=== PATIENT | male | born 1975 | race Caucasian/White ===

== ENCOUNTER 2016-11-12 12:02 | Inpatient (IN) | payer BC, OTHER ==
[~2016-11-12] VITALS: Ht 190.5 cm; Wt 116.4 kg
[2016-11-12] MEDS ORDERED: ACETAMINOPHEN 325 MG TAB As Ordered ONE (13:33)
[2016-11-12 13:59] LABS: BASO % 0.1 % (0.0-1.0); EOS # 0.1 K/mm3 (0.0-0.50); EOS % 1.4 % (0.0-3.0); LARGE UNSTAINED CELL # 0.1 K/mm3 (0.0-0.4); LARGE UNSTAINED CELL % 0.9 % (0.0-4.0); LYMPH # 1.8 K/mm3 (1.5-4.5); LYMPH % 26.9 % (24.0-44.0); MEAN CORPUSCULAR HEMOGLOBIN 29.4 pg (27.0-33.0); MEAN CORPUSCULAR HGB CONC 34.1 g/dl (32.0-36.5); MEAN CORPUSCULAR VOLUME 86.2 fl (80.0-96.0); MONO # 0.3 K/mm3 (0.0-0.8); MONO % 5.1 % (0.0-5.0); NEUTROPHILS # 4.4 K/mm3 (1.8-7.7); NEUTROPHILS % 65.5 % (36.0-66.0); PLATELET COUNT, AUTOMATED 202 k/mm3 (150-450); RED CELL DISTRIBUTION WIDTH 12.3 % (11.5-14.5); WHITE BLOOD COUNT 6.6 K/mm3 (4.0-10.0)
[2016-11-12 14:23] LABS: ANION GAP 9 MEQ/L (8-16); BLOOD UREA NITROGEN 19 MG/DL (7-18); CALCIUM LEVEL 8.6 MG/DL (8.5-10.1); CARBON DIOXIDE LEVEL 27 MEQ/L (21-32); CHLORIDE LEVEL 104 MEQ/L (98-107); CREATININE FOR GFR 0.96 MG/DL (0.70-1.30); GLOMERULAR FILTRATION RATE > 60.0 (>60); GLUCOSE, FASTING 179 MG/DL (70-105); POTASSIUM SERUM 4.1 MEQ/L (3.5-5.1); SODIUM LEVEL 140 MEQ/L (136-145)
--- NOTE | 2016-11-12 14:39 | REP ---
SCROTAL SONOGRAPHY: HISTORY: Swelling. Comparison study February 07, 2008. FINDINGS: High-resolution bilateral scrotal sonography shows no evidence of intratesticular mass or hematoma. Right testis measures 4.4 x 2.2 x 2.9 cm. Left testicular dimensions are 4.3 x 2.4 x 3.3 cm. No hydrocele or hernia is seen. Epididymides are unremarkable. Normal Doppler flow is seen both testes. Resistive indices are 0.60 and 0.55 on the right and left respectively. IMPRESSION: Negative scrotal sonography. No intratesticular hematoma or mass seen. Normal Doppler flow. Signed by Trenton Omer MD 11/12/2016 02:57 P
[2016-11-12] MEDS ORDERED: cefTRIAXone SOD 1 GM VIAL (J0696) As Ordered ONE (17:44)
[2016-11-12] MEDS ORDERED: CINN500C9 PO (17:47)
[2016-11-12] MEDS ORDERED: LISI2.5T3 PO (17:47)
[2016-11-12] MEDS ORDERED: LEXA1TAB2 PO (17:47)
[2016-11-12] MEDS ORDERED: OMEP40CA2 PO (17:47)
[2016-11-12] MEDS ORDERED: IBUP60TA PO (17:47)
[2016-11-12] MEDS ORDERED: GLYB25TA PO (17:47)
[2016-11-12] MEDS ORDERED: METF1000 PO (17:47)
[2016-11-12] MEDS ORDERED: ATOR1TAB19 PO (17:47)
--- NOTE | 2016-11-12 17:50 | REPUSA ---
HISTORY: Assess for perineal abscess TECHNIQUE: Ultrasound and doppler examination of the perineal region was performed with grayscale, co jeannie flow. FINDINGS: None In the perineal region there is a 3.0 x 3.3 x 2.3 cm complex fluid collection with peripheral flow, a nd surrounding edema. Drainable fluid was reported by dealer support technician. IMPRESSION: 3.3 cm perineal fluid collection would be consistent with a clinical suspicion of abscess.
[2016-11-12] MEDS ORDERED: ACETAMINOPHEN TAB 650MG DOSE (2X325MG) PO PRN (19:15)
[2016-11-12] MEDS ORDERED: DEXTROSE 50% 50 ML SYRINGE IV PRN (19:15)
[2016-11-12] MEDS ORDERED: GLUCOSE 4 GM CHEW TABLET PO PRN (19:15)
[2016-11-12] MEDS ORDERED: GLUCAGON FOR INJ 1 MG VIAL (J1610) SC PRN (19:15)
--- NOTE | 2016-11-12 20:27 | EDDOCDS ---
Physician Documentation [facility] Name: Scooter Meza Age: 41 yrs Sex: Male : 1975 Arrival Date: 11/12/2016 Time: 12:02 Bed 7 Private MD: Julio Cesar Matthews Disposition: 11/12 18:38 I have independently interviewed and examined the patient, and I agree with the sd1 investigation, diagnosis and treatment plan as documented by the Resident. Disposition: 11/12/16 18:37 Hospitalization ordered by Zulema Cooney for Inpatient Admission. Preliminary diagnosis is Cutaneous abscess, unspecified - perineal area with associated scrotal cellulitis. - Bed requested for M PED. - Status is Inpatient Admission. kmg1 - Condition is Stable. - Problem is new. - Symptoms are unchanged. Historical: - Allergies: No known drug Allergies; - Home Meds: 1. metformin 1,000 mg Oral tab 1 tab 2 times per day (Last dose: 11/12/2016 06:00) 2. omeprazole 20 mg Oral cpDR 1 cap once daily (Last dose: 11/12/2016 06:00) 3. atorvastatin 10 mg oral tab 1 tab once daily (Last dose: 11/12/2016 06:00) 4. Lexapro 20 mg Oral tab 1 tab once daily (Last dose: 11/12/2016 06:00) 5. lisinopril 10 mg Oral tab 1 tab once daily (Last dose: 11/12/2016 06:00) 6. ibuprofen 200 mg Oral tab 600 mg every 4-6 hours as needed (Last dose: 11/12/2016 06:00) 7. Cinnamon 500 mg oral cap 2 cap daily as needed (Last dose: 11/12/2016 06:00) - PMHx: Hypercholesterolemia; Hypertension; Diabetes - NIDDM: uncontrolled; GERD; - PSHx: Tonsillectomy; partial amputation right middle finger; Vasectomy; - Social history: Smoking status: Patient states was never smoker of tobacco. No barriers to communication noted, The patient speaks fluent Martiniquais. - Family history: Not pertinent. - : The pt / caregiver states he / she is not on anticoagulants. Home medication list is obtained from the patient. - Exposure Risk Screening:: None identified. Vital Signs: 12:04 BP 147 / 76; Pulse 62; Resp 18 S; Temp 96.6(O); Pulse Ox 98% on R/A; Weight 113.4 kg / gr2 250 lbs (R); Height 6 ft. 3 in. (190.50 cm) (R); Pain 8/10; 14:46 Pain 0/10; js13 19:06 BP 146 / 83 (auto/); mv5 19:08 Pulse 66 MON; Pulse Ox 99% ; mv5 19:36 BP 137 / 79 (auto/); mv5 19:36 Pulse 62 MON; Pulse Ox 97% ; mv5 20:09 BP 132 / 80; Pulse 72; Resp 18; Temp 99.8(O); Pulse Ox 97% on R/A; Pain 0/10; kmg1 12:04 Body Mass Index 31.25 (113.40 kg, 190.50 cm) gr2 MDM: 13:19 CBC with Diff Ordered. EDMS 13:24 Acetaminophen Tablet 650 mg PO once ordered. jo4 13:25 Scrotal, US Ordered. EDMS 13:26 BMP Ordered. EDMS 13:48 Financial registration complete. mm15 14:14 DUPLEX SCAN LIMITED (DOPPLER) Ordered. EDMS 14:19 [facility] Payment Agreement was scanned into [employer] and attached to record. mm15 14:26 CBC with Diff Reviewed. sd1 14:26 BMP Reviewed. sd1 15:14 Scrotal, US Reviewed. jo4 16:44 Scrotal, US Reviewed. jo4 16:53 Pelvis, limited US Ordered. EDMS 17:16 BED REQUEST+ADM ordered. EDMS 17:21 -Blood Culture (Adults Only), peripheral from different site, or from device/port/PICC sd1 etc. if present ordered. 17:22 CRP Ordered. EDMS 17:22 Sed Rate Ordered. EDMS 17:22 -Blood Culture Ordered. EDMS 17:25 Fingerstick Blood Sugar Ordered. EDMS 17:26 -Blood Culture (Adults Only), peripheral from different site, or from device/port/PICC ar3 etc. if present complete. 17:27 Fingerstick Blood Sugar Reviewed. jo4 17:27 BLOOD CULTURES Ordered. EDMS 17:31 cefTRIAXone 1 grams IVPB once over 30 mins; dilute in 50mL of NS or D5W ordered. jo4 17:31 IV Saline Lock ordered. jo4 18:12 Sed Rate Reviewed. sd1 19:15 Admission / Observation Status ordered. EDMS 19:15 NPO DIET ordered. EDMS 19:15 URINALYSIS Ordered. EDMS 19:15 HEMOGLOBIN A1C Ordered. EDMS 19:15 URINE CULTURE Ordered. EDMS 19:16 ABSCESS CULTURE AND GRAM STAIN Ordered. EDMS 19:23 Admission Orders was scanned into [employer] and attached to record. ml3 19:24 Written Provider Order was scanned into [employer] and attached to record. ml3 19:32 CBC WITH DIFFERENTIAL Ordered. EDMS 19:32 COMPLETE COMPHRENSIVE METABOLI Ordered. EDMS 19:33 MAGNESIUM LEVEL Ordered. EDMS Administered Medications: 13:36 Drug: Acetaminophen 650 mg [acetaminophen 325 mg tablet (2 tabs)] Route: PO; js13 14:46 Follow up: Pain 0/10 Adult; Response: Pain is decreased js13 17:56 Drug: cefTRIAXone 1 grams [ceftriaxone 1 gram solution for injection] Route: IVPB; js13 Infused Over: 30 mins; Site: right antecubital; 19:03 Follow up: IV Status: Completed infusion; IV Intake: 50ml js13 Signatures: Dispatcher [employer] EDMS Anne Joshua MD MD sd1 Iwona Maldonado, RN RN kmg1 Shirlene Aparicio, RN RN kpj Vero Strauss, Smasher Unit ml3 Mckenna Ponce, TENONER OPERATOR TENONER OPERATOR ar3 Sydnie Huerta,RN RN js13 Dalton Massey mm15 Carrie Novak DO DO jo4 The chart was reviewed and I authenticate all verbal orders and agree with the evaluation and treatment provided.Corrections: (The following items were deleted from the chart) 16:52 16:50 DUPLEX SCAN LIMITED (DOPPLER)+US ordered. EDMS EDMS 16:53 16:50 US PELVIC NON-OB COMPLETE+US ordered. EDMS EDMS Attachments: 14:19 [facility] [place] Payment Agreement mm15 19:23 Admission Orders ml3 19:24 Written Provider Order ml3 MTDD
--- NOTE | 2016-11-12 20:28 | EDDOCDS ---
Nurse's Notes [facility] Name: Scooter Meza Age: 41 yrs Sex: Male : 1975 Arrival Date: 11/12/2016 Time: 12:02 Bed 7 Private MD: Julio Cesar Matthews Diagnosis: Cutaneous abscess, unspecified-perineal area with associated scrotal cellulitis Presentation: 11/12 12:06 Presenting complaint: Patient states: swelling scrotum x 2 days blood sugar 247 mg/dl [facility] this morning. Adult Sepsis Screening: The patient does not have new or worsening altered mentation. Patient's respiratory rate is less than 22. Systolic blood pressure is greater than 100. Patient has a qSOFA score of 0- Negative Sepsis Screen. Suicide/Homicide risk assessment- the patient denies having any suicidal and/or homicidal ideations and does not present with any other emotional, behavioral or mental health complaints. Status: Patient is not a ag service manager or dependent. Transition of care: patient was not received from another setting of care. 12:06 Acuity: AYESHA Level 3 [facility] 12:06 Method Of Arrival: Walkin/Carried/Asstd [facility] Triage Assessment: 12:12 General: Appears in no apparent distress, well nourished, well groomed, Behavior is [facility] appropriate for age. Pain: Location: groin Pain currently is 0 out of 10 on a pain scale. Pt Declines HIV testing. Neurological: Level of Consciousness is awake, alert, Oriented to person, place, time. Respiratory: Airway is patent Respiratory effort is even, unlabored. GI: Denies nausea, vomiting, pain. : Reports pain swelling testicles. Derm: Skin is pink, warm & dry. Historical: - Allergies: No known drug Allergies; - Home Meds: 1. metformin 1,000 mg Oral tab 1 tab 2 times per day (Last dose: 11/12/2016 06:00) 2. omeprazole 20 mg Oral cpDR 1 cap once daily (Last dose: 11/12/2016 06:00) 3. atorvastatin 10 mg oral tab 1 tab once daily (Last dose: 11/12/2016 06:00) 4. Lexapro 20 mg Oral tab 1 tab once daily (Last dose: 11/12/2016 06:00) 5. lisinopril 10 mg Oral tab 1 tab once daily (Last dose: 11/12/2016 06:00) 6. ibuprofen 200 mg Oral tab 600 mg every 4-6 hours as needed (Last dose: 11/12/2016 06:00) 7. Cinnamon 500 mg oral cap 2 cap daily as needed (Last dose: 11/12/2016 06:00) - PMHx: Hypercholesterolemia; Hypertension; Diabetes - NIDDM: uncontrolled; GERD; - PSHx: Tonsillectomy; partial amputation right middle finger; Vasectomy; - Social history: Smoking status: Patient states was never smoker of tobacco. No barriers to communication noted, The patient speaks fluent Argentine. - Family history: Not pertinent. - : The pt / caregiver states he / she is not on anticoagulants. Home medication list is obtained from the patient. - Exposure Risk Screening:: None identified. Screenin:30 Screening information is obtained from the patient. Fall risk: No risks identified. js13 Assistance ADL's: requires no assistance with activities of daily living. Abuse/DV Screen: The patient / caregiver reports he/she is: not in a situation that causes fear, pain or injury. Nutritional screening: No deficits noted. Advance Directives: There is no active DNR order. home support is adequate. Assessment: 13:32 General: Appears in no apparent distress, Behavior is appropriate for age, cooperative. js13 Neurological: Level of Consciousness is awake, alert. Respiratory: Airway is patent Respiratory effort is even, unlabored, Respiratory pattern is regular, symmetrical. :. Derm: Skin is pink, warm & dry. 14:13 Adult Sepsis Screening: The patient does not have new or worsening altered mentation. js13 Patient's respiratory rate is less than 22. Systolic blood pressure is greater than 100. Patient has a qSOFA score of 0- Negative Sepsis Screen. 14:13 General: Appears in no apparent distress, Behavior is appropriate for age, cooperative. js13 Neurological: Level of Consciousness is awake, alert. Respiratory: Airway is patent Respiratory effort is even, unlabored, Respiratory pattern is regular, symmetrical. Derm: Skin is pink, warm & dry. 15:30 General: Appears in no apparent distress, Behavior is appropriate for age, cooperative. js13 Pain: Denies pain. Neurological: No deficits noted. Level of Consciousness is awake, alert. Respiratory: Airway is patent Respiratory effort is even, unlabored, Respiratory pattern is regular, symmetrical. Derm: Skin is pink, warm & dry. 16:15 Adult Sepsis Screening: The patient does not have new or worsening altered mentation. js13 Patient's respiratory rate is less than 22. Systolic blood pressure is greater than 100. Patient has a qSOFA score of 0- Negative Sepsis Screen. 16:52 General: Appears in no apparent distress, Behavior is appropriate for age, cooperative. js13 Neurological: Level of Consciousness is awake, alert. Respiratory: No deficits noted. Airway is patent Respiratory effort is even, unlabored, Respiratory pattern is regular, symmetrical. Derm: Skin is pink, warm & dry. 17:31 General: Appears in no apparent distress, Behavior is appropriate for age, cooperative. js13 Pain: Denies pain. Neurological: Level of Consciousness is awake, alert. Respiratory: Airway is patent Respiratory effort is even, unlabored, Respiratory pattern is regular. Derm: Skin is pink, warm & dry. 18:33 Adult Sepsis Screening: The patient does not have new or worsening altered mentation. js13 Patient's respiratory rate is less than 22. Systolic blood pressure is greater than 100. Patient has a qSOFA score of 0- Negative Sepsis Screen. General: Appears in no apparent distress, Behavior is appropriate for age, cooperative. Pain: Denies pain. Neurological: Level of Consciousness is awake, alert. Respiratory: Airway is patent Respiratory effort is even, unlabored, Respiratory pattern is regular, symmetrical. Derm: Skin is pink, warm & dry. 19:11 General: Appears in no apparent distress, Behavior is appropriate for age, cooperative. mv5 General: Pt resting comfortably, at bedside. Hospitalist in to assess pt and discuss plan of care.. Pain: Denies pain. Neurological: Level of Consciousness is awake, alert, Oriented to person, place, time. Respiratory: Airway is patent Respiratory effort is even, unlabored, Respiratory pattern is regular, symmetrical. Derm: Skin is pink, warm & dry. 20:09 General: Appears in no apparent distress, Behavior is cooperative, pleasant. Pain: mv5 Denies pain. Neurological: Level of Consciousness is awake, alert, Oriented to person, place, time. Respiratory: Airway is patent Respiratory effort is even, unlabored, Respiratory pattern is regular, symmetrical. Derm: Skin is pink, warm & dry. Vital Signs: 12:04 BP 147 / 76; Pulse 62; Resp 18 S; Temp 96.6(O); Pulse Ox 98% on R/A; Weight 113.4 kg gr2 (R); Height 6 ft. 3 in. (190.50 cm) (R); Pain 8/10; 14:46 Pain 0/10; js13 19:06 BP 146 / 83 (auto/); mv5 19:08 Pulse 66 MON; Pulse Ox 99% ; mv5 19:36 BP 137 / 79 (auto/); mv5 19:36 Pulse 62 MON; Pulse Ox 97% ; mv5 20:09 BP 132 / 80; Pulse 72; Resp 18; Temp 99.8(O); Pulse Ox 97% on R/A; Pain 0/10; kmg1 12:04 Body Mass Index 31.25 (113.40 kg, 190.50 cm) gr2 Vitals: 12:04 Log In Time: November 12, 2016 at 12:04. gr2 ED Course: 12:03 Patient visited by Elmira Orta. gr2 12:03 Julio Cesar Matthews DO is Private Physician. gr2 12:03 Patient moved to Waiting gr2 12:05 Patient visited by Elmira Orta. gr2 12:05 Patient moved to Pre RCE gr2 12:08 Triage Initiated kpj 12:16 Sydnie Huerta,ROGERS is Primary Nurse. srm 12:16 Patient moved to 7 srm 12:23 [facility] jo4 12:23 Anne Joshua MD is Attending Physician. jo4 12:30 The patient / caregiver is instructed regarding the plan of care and ED course. js13 13:00 Patient visited by Carrie Novak DO. jo4 13:00 Patient visited by Carrie Novak DO. jo4 13:33 Patient visited by Sydnie Huerta,ROGERS. js13 13:46 Patient moved to Ultrasound am17 14:10 Patient moved to 7 am17 14:13 Patient visited by Sydnie Huerta,ROGERS. js13 14:19 [facility] [place] Agreement was scanned into [employer] and attached to record. mm15 14:43 Scrotal, US Returned. EDMS 15:25 Scrotal, US Returned. EDMS 15:47 Patient visited by Soledad Posada. nb2 16:06 Patient visited by Sydnie Huerta,ROGERS. js13 16:53 Patient visited by Sydnie Huerta,ROGERS. js13 16:57 Patient moved to Ultrasound am17 17:06 Patient moved to 7 am17 17:32 Patient visited by Sydnie Huerta,ROGERS. js13 17:32 BLOOD CULTURES Sent. js13 17:32 CRP Sent. js13 17:32 Sed Rate Sent. js13 17:56 No procedures done that require assistance. Labs drawn. (by ED staff). Sent per order js13 to lab. Labs/Blood culture drawn. 17:57 Patient visited by Krishan Nunez,ROGERS. jf3 17:57 Inserted saline lock: 18 gauge in right antecubital area The patient tolerated the jf3 procedure well. 18:19 Pelvis, limited US Returned. EDMS 18:33 Patient visited by Sydnie Huerta,ROGERS. js13 18:37 Zulema Cooney is Hospitalizing Provider. sd1 19:11 Primary Nurse role handed off by Sydnie Huerta,ROGERS mv5 19:11 Tia Patel,ROGERS is Primary Nurse. mv5 19:11 Patient visited by Tia Patel,ROGERS. mv5 19:23 Admission Orders was scanned into [employer] and attached to record. ml3 19:24 Written Provider Order was scanned into [employer] and attached to record. ml3 19:45 Iwona Maldonado, RN is Primary Nurse. kmg1 19:59 ABSCESS CULTURE AND GRAM STAIN Sent. kmg1 Administered Medications: 13:36 Drug: Acetaminophen 650 mg [acetaminophen 325 mg tablet (2 tabs)] Route: PO; js13 14:46 Follow up: Pain 0/10 Adult; Response: Pain is decreased js13 17:56 Drug: cefTRIAXone 1 grams [ceftriaxone 1 gram solution for injection] Route: IVPB; js13 Infused Over: 30 mins; Site: right antecubital; 19:03 Follow up: IV Status: Completed infusion; IV Intake: 50ml js13 Intake: 19:03 IV: 50.00ml; Total: 50.00ml. js13 Order Results: Lab Order: CBC with Diff; SPEC'M 11/12/16 13:53 Test: WHITE BLOOD COUNT; Value: 6.6; Range: 4.0-10.0; Units: K/mm3; Status: F Test: RED BLOOD COUNT; Value: 4.98; Range: 4.30-6.10; Units: M/mm3; Status: F Test: HEMOGLOBIN; Value: 14.7; Range: 14.0-18.0; Units: g/dl; Status: F Test: HEMATOCRIT; Value: 42.9; Range: 42.0-52.0; Units: %; Status: F Test: MEAN CORPUSCULAR VOLUME; Value: 86.2; Range: 80.0-96.0; Units: fl; Status: F Test: MEAN CORPUSCULAR HEMOGLOBIN; Value: 29.4; Range: 27.0-33.0; Units: pg; Status: F Test: MEAN CORPUSCULAR HGB CONC; Value: 34.1; Range: 32.0-36.5; Units: g/dl; Status: F Test: RED CELL DISTRIBUTION WIDTH; Value: 12.3; Range: 11.5-14.5; Units: %; Status: F Test: PLATELET COUNT, AUTOMATED; Value: 202; Range: 150-450; Units: k/mm3; Status: F Test: NEUTROPHILS %; Value: 65.5; Range: 36.0-66.0; Units: %; Status: F Test: LYMPH %; Value: 26.9; Range: 24.0-44.0; Units: %; Status: F Test: MONO %; Value: 5.1; Range: 0.0-5.0; Abnormal: Above high normal; Units: %; Status: F Test: EOS %; Value: 1.4; Range: 0.0-3.0; Units: %; Status: F Test: BASO %; Value: 0.1; Range: 0.0-1.0; Units: %; Status: F Test: LARGE UNSTAINED CELL %; Value: 0.9; Range: 0.0-4.0; Units: %; Status: F Test: NEUTROPHILS #; Value: 4.4; Range: 1.8-7.7; Units: K/mm3; Status: F Test: LYMPH #; Value: 1.8; Range: 1.5-4.5; Units: K/mm3; Status: F Test: MONO #; Value: 0.3; Range: 0.0-0.8; Units: K/mm3; Status: F Test: EOS #; Value: 0.1; Range: 0.0-0.50; Units: K/mm3; Status: F Test: BASO #; Value: 0.0; Range: 0.0-0.2; Units: K/mm3; Status: F Test: LARGE UNSTAINED CELL #; Value: 0.1; Range: 0.0-0.4; Units: K/mm3; Status: F Lab Order: BMP; SPEC'M 11/12/16 13:53 Test: GLUCOSE, FASTING; Value: 179; Range: 70-105; Abnormal: Above high normal; Units: MG/DL; Status: F Test: BLOOD UREA NITROGEN; Value: 19; Range: 7-18; Abnormal: Above high normal; Units: MG/DL; Status: F Test: CREATININE FOR GFR; Value: 0.96; Range: 0.70-1.30; Units: MG/DL; Status: F Test: GLOMERULAR FILTRATION RATE; Value: > 60.0; Range: >60; Status: F Test: SODIUM LEVEL; Value: 140; Range: 136-145; Units: MEQ/L; Status: F Test: POTASSIUM SERUM; Value: 4.1; Range: 3.5-5.1; Units: MEQ/L; Status: F Test: CHLORIDE LEVEL; Value: 104; Range: 98-107; Units: MEQ/L; Status: F Test: CARBON DIOXIDE LEVEL; Value: 27; Range: 21-32; Units: MEQ/L; Status: F Test: ANION GAP; Value: 9; Range: 8-16; Units: MEQ/L; Status: F Test: CALCIUM LEVEL; Value: 8.6; Range: 8.5-10.1; Units: MG/DL; Status: F Test Note: ; Units are mL/min/1.73 m2 Chronic Kidney Disease Staging per NKF: Stage I & II GFR >=60 Normal to Mildly Decreased Stage III GFR 30-59 Moderately Decreased Stage IV GFR 15-29 Severely Decreased Stage V GFR <15 Very Little GFR Left ESRD GFR <15 on MOBILE UI DESIGNER Lab Order: CRP; SPEC'M 11/12/16 17:34 Test: C REACTIVE PROTEIN QUANTITATIV; Value: 5.45; Range: 0.00-0.30; Abnormal: Above high normal; Units: MG/DL; Status: F Lab Order: Sed Rate; [facility] 11/12/16 17:35 Test: ERYTHROCYTE SEDIMENTATION RATE; Value: 27; Range: 0-15; Abnormal: Above high normal; Units: mm/hr; Status: F Lab Order: Fingerstick Blood Sugar; [facility] 11/12/16 17:15 Test: BEDSIDE GLUCOSE; Value: 147; Range: 70-105; Abnormal: Above high normal; Units: MG/DL; Status: F Test Note: ; Dr Order not to Draw Lab Order: HEMOGLOBIN A1C; [facility] 11/12/16 17:25 Test: HEMOGLOBIN A1c; Value: 9.0; Range: 4.5-6.2; Abnormal: Above high normal; Units: %; Status: F Test: ESTIMATED AVERAGE GLUCOSE; Value: 212; Range: 60-110; Abnormal: Above high normal; Units: MG/DL; Status: F Radiology Order: Scrotal, US Test: Scrotal, US REASON FOR EXAMINATION: Deformity/Swelling; SCROTAL SONOGRAPHY:; ; HISTORY: Swelling.; ; Comparison study February 07, 2008.; ; FINDINGS: High-resolution bilateral scrotal sonography shows no evidence of; intratesticular mass or hematoma. Right testis measures 4.4 x 2.2 x 2.9 cm.; Left testicular dimensions are 4.3 x 2.4 x 3.3 cm. No hydrocele or hernia is; seen. Epididymides are unremarkable. Normal Doppler flow is seen both testes.; Resistive indices are 0.60 and 0.55 on the right and left respectively.; ; IMPRESSION:; ; Negative scrotal sonography. No intratesticular hematoma or mass seen. Normal; Doppler flow.; ; ; Signed by; Trenton Omer MD 11/12/2016 02:57 P; Radiology Order: Pelvis, limited US Test: Pelvis, limited US REASON FOR EXAMINATION: Scrotal swelling R/O PERINEAL ABSCESS; ; HISTORY: Assess for perineal abscess; TECHNIQUE: Ultrasound and doppler examination of the perineal region was performed with grayscale, co; jeannie flow.; FINDINGS: None; In the perineal region there is a 3.0 x 3.3 x 2.3 cm complex fluid collection with peripheral flow, a; nd surrounding edema. Drainable fluid was reported by astronomy professor.; IMPRESSION:; 3.3 cm perineal fluid collection would be consistent with a clinical suspicion of abscess.; ; Outcome: 18:37 Decision to Hospitalize by Provider. sd1 20:06 Admission hand-off: Report called to Blanca Cano. mv5 20:11 Discharge Assessment: Patient awake, alert and oriented x 3. No cognitive and/or mv5 functional deficits noted. Patient verbalized understanding of disposition instructions. patient administered narcotics - no. The following High Risk Discharge criteria are identified: Admitted to Pediatrics accompanied by tech, family with patient, via stretcher. Condition: stable. Ultrasound Study completed. Property :Personal belongings accompany Pt. 20:26 Patient left the ED. kmg1 Signatures: Dispatcher [employer] EDMS Anne Joshua MD MD sd1 Iwona Maldonado, RN RN kmg1 Shirlene Aparicio RN Ewa Acosta, RN RN [facility], Diagnostic Cardiac Sonographer Unit ml3 Sydnie Huerta,RN RN js13 Elmira Orta gr2 Dalton Massey mm15 Kateryna Clark am17 Krishan Nunez,RN RN jf3 Carrie Novak DO DO jo4 Soledad Posada2 Tia Patel,RN RN mv5 MTDD
[2016-11-12] MEDS: HumaLOG INSULIN (NovoLOG) PER UNIT SC SCH (21:00)
--- NOTE | 2016-11-12 21:00 | HPEPDOC ---
General Date of Admission Nov 12, 2016 at 19:05 Chief Complaint The patient is a 41-year-old male Presented to the ER with complaints of pain below his scrotum for the last 2-3 days. History of Present Illness Patient is a 41 year old male with a PMHx of HTN, DLP, GERD, Mood disorder and NIDDM2 who presented to the ER with pain and swelling just below his scrotum. Patient noted that 3 days ago he was playing with his daughter and got kicked in his testicles. At that point he had severe pain, but it subsided. He then noticed that over 2-3 days, he began having swelling, redness and tenderess to that area. Upon examination he had noted that there was a firm mass below his scrotum. He noted that it was tender. He reports that at home today, he had chills and measured his temperature which was 100.0F. He denies any drainage or skin breaks in the area. He denies any abdominal pain, dysuria, frequency, constipation, diarrhea, nausea or vomiting. He denies any chest pain, shortness of breath or cough. Patient noted that 2 weeks ago he had a cellulitis on the posterior aspect of his right thigh. He reported that he went sought medical attention and was given Ceftriaxone and a course of Keflex and the are resolved. He did not require any drainage. Home Medications Scheduled Atorvastatin Calcium (Atorvastatin Calcium) 10 Mg Tab 10 MG PO DAILY (Reported ) Cinnamon Bark (Cinnamon) 500 Mg Cap 1,000 MG PO DAILY (Reported) Escitalopram Oxalate (Lexapro) 20 Mg Tab 20 MG PO DAILY (Reported) Lisinopril (Lisinopril) 2.5 Mg Tab 2.5 MG PO DAILY (Reported) Metformin Hydrochloride (Metformin HCl) 1,000 Mg Tab 1,000 MG PO BID (Reported ) Omeprazole (Omeprazole) 40 Mg Cap 40 MG PO DAILY (Reported) Scheduled PRN Glyburide (Glyburide) 2.5 Mg Tab 2.5 MG PO DAILY PRN PRN HIGH BLOOD SUGAR ( Reported) Ibuprofen (Ibuprofen) 600 Mg Tab 600 MG PO Q4H PRN PRN PAIN (Reported) Allergies Coded Allergies: No Known Drug Allergy (Verified Allergy, Unknown, 01/14/13) Past Medical History Medical History HTN, DLP, GERD, Mood disorder and NIDDM2 Surgical History Tonsillectomy Vasectomy 10 years ago Traumatic amputation of the tip of the right middle finger 10 years ago Family History Family History - Mother and father with a history of heart problems Social History Social History - Denies the use of alcohol, tobacco or illicit drugs - Denies recent travel or sick contacts - Lives with and children - Occupation; Delivery of propane and other fuels Review of Symptoms Other systems Constitutional: Denies weight loss, change in appetite, or recent trauma Eyes: No visual changes or eye pain Ears, Nose, Throat: Denies nose bleeds, or difficulty swallowing Cardiovascular: Denies chest pain, sweating, or orthopnea Respiratory: Denies cough, wheezing, or shortness of breath GI: Pawan nausea, vomiting, abdominal pain, diarrhea or constipation : Denies pain with urination or frequency, Pain below scrotum Musculoskeletal: Denies joint pain or swelling Neuro / Psych: Denies muscle weakness or sensory loss Skin: No skin rashes noted All other review of systems negative; otherwise stated in history of present illness Vital Signs - Vitals: BP 147/76, HR 62, RR 18, Sat 98%RA, Temp 96.6F - General: Lying in bed, No acute distress, Speaking in full sentences, AAOx3 - HEENT: NC, AT, PERRLA, EOMI - CVS: RRR, +S1S2, - Murmurs / rubs / gallops - Lungs: Fair air entry bilaterally, Clear to auscultation, No wheezing / rales / rhonchi - Abdomen: Soft, Non-distended, Non-tender, + Bowel sounds x 4 - Genitourinary: Scrotum appears erythematous and warm, tenderness at posterior aspect of scrotum with firm fluctuant mass, no skin breaks or drainage noted - Extremities: + PPx4, No lower extremity edema, No calf tenderness - Neuro: No focal motor or sensory deficit - Skin: No visible rashes Laboratory Data Labs 24H Laboratory Tests 2 11/12/16 13:53: Anion Gap 9, White Blood Count 6.6, Red Blood Count 4.98, Hemoglobin 14.7, Hematocrit 42.9, Mean Corpuscular Volume 86.2, Mean Corpuscular Hemoglobin 29.4 , Mean Corpuscular Hemoglobin Concent 34.1, Red Cell Distribution Width 12.3, Platelet Count 202, Neutrophils (%) (Auto) 65.5, Lymphocytes (%) (Auto) 26.9, Monocytes (%) (Auto) 5.1H, Eosinophils (%) (Auto) 1.4, Basophils (%) (Auto) 0.1 , Neutrophils # (Auto) 4.4, Lymphocytes # (Auto) 1.8, Monocytes # (Auto) 0.3, Eosinophils # (Auto) 0.1, Basophils # (Auto) 0.0, Blood Urea Nitrogen 19H, Creatinine 0.96, Sodium Level 140, Potassium Level 4.1, Chloride Level 104, Carbon Dioxide Level 27, Calcium Level 8.6, Glomerular Filtration Rate > 60.0, Large Unclassified Cells # 0.1, Large Unclassified Cells % 0.9 11/12/16 17:15: Bedside Glucose (Misc Panel) 147H 11/12/16 17:25: Estimated Mean Plasma Glucose 212H, Hemoglobin A1c 9.0H 11/12/16 17:34: C-Reactive Protein, Quantitative 5.45H 11/12/16 17:35: Erythrocyte Sedimentation Rate 27H CBC/BMP Laboratory Tests 11/12/16 13:53 Calcium Level 8.6, Red Blood Count 4.98, Mean Corpuscular Volume 86.2, Mean Corpuscular Hemoglobin 29.4, Mean Corpuscular Hemoglobin Concent 34.1, Red Cell Distribution Width 12.3, Neutrophils (%) (Auto) 65.5, Lymphocytes (%) (Auto) 26.9, Monocytes (%) (Auto) 5.1 H, Eosinophils (%) (Auto) 1.4, Basophils (%) ( Auto) 0.1, Neutrophils # (Auto) 4.4, Lymphocytes # (Auto) 1.8, Monocytes # (Auto ) 0.3, Eosinophils # (Auto) 0.1, Basophils # (Auto) 0.0 Microbiology Microbiology 11/12/16 Blood Culture, Received Pending 11/12/16 Blood Culture, Received Pending Plan / VTE VTE Prophylaxis Ordered?: Yes Plan Plan Perianal abscess just below scrotum - Reported to have progressed over last 2-3 days, Fevers at home - Area of fluctuant collection, erythema, swelling and warmth, no drainage, no fevers in ER - No leukocytosis - US reveals area of 3.3cm fluid collection consistent with abscess - Will check blood culture and abscess drainage culture - Has been evaluated by urology in the ER; will go for incision and drainage tonight - Discussed with urology; will continue with Zosyn NIDDM2 - A1c of 9.0 - Reports that he follows with his primary care provider and will see him next week - Has been compliant with his medications and diet as an outpatient - will hold oral medications - Hyperglycemia possibly in the setting of infection - Will start insulin sliding scale HTN - will continue with home medications with holding parameters DLP - c/w atorvastatin Mood disorder - c/w Lexapro GERD - c/w omeprazole DVT prophylaxis - Will start SCDs DARIEL CASTANEDA MD Nov 12, 2016 21:00
[2016-11-12] MEDS: NS 1,000 ML IV SCH (21:34)
[2016-11-12] MEDS: PIPERACILLIN/TAZOBACTAM SOD 3.375 GM in D5W MINI-BAG PLUS 50 ML IV SCH (21:56)
[2016-11-12 22:00] VITALS: BP 170/79
[2016-11-12] MEDS ORDERED: DAKIN'S 0.25% HALF-STRENGTH SOLN 480 ML As Ordered ONE (22:43)
[2016-11-12] MEDS ORDERED: PROPOFOL 200 MG/20 ML VIAL As Ordered ONE (23:03)
[2016-11-12] MEDS ORDERED: LIDOCAINE 2% INJ 100 MG/5 ML SDV (FOR ANES.) As Ordered ONE (23:03)
[2016-11-12] MEDS ORDERED: fentaNYL 100 MCG/2 ML INJECTION (J3010) As Ordered ONE ×2 (23:03→23:17)
[2016-11-12] MEDS ORDERED: METOCLOPRAMIDE INJ 10MG/2ML VIAL (J2765) As Ordered ONE (23:03)
[2016-11-12] MEDS ORDERED: MIDAZOLAM INJ 2 MG/2 ML VIAL (J2250) As Ordered ONE (23:03)
[2016-11-12] MEDS ORDERED: ONDANSETRON 4MG/2ML VIAL (J2405) As Ordered ONE (23:03)
[2016-11-12] MEDS ORDERED: metroNIDAZOLE/NACL 500MG(5MG/ML)100 ML BAG (S0030) As Ordered ONE (23:08)
[2016-11-12] MEDS ORDERED: BACITRACIN OINT 30GM As Ordered ONE (23:26)
[2016-11-13] VITALS (12 sets, daily range): BP systolic 111–142; BP diastolic 55–74
[2016-11-13] MEDS ORDERED: PERCOCET 5MG/325MG TAB As Ordered ONE ×2 (00:12→00:34)
[2016-11-13] MEDS ORDERED: fentaNYL 100 MCG/2 ML INJECTION (J3010) IV PRN (00:15)
[2016-11-13] MEDS ORDERED: ONDANSETRON 4MG/2ML VIAL (J2405) IV PRN (00:15)
[2016-11-13] MEDS ORDERED: LR 1,000 ML IV SCH (00:15)
[2016-11-13] MEDS ORDERED: METOCLOPRAMIDE INJ 10MG/2ML VIAL (J2765) IV PRN (00:15)
[2016-11-13] MEDS: PERCOCET 5MG/325MG TAB PO PRN ×2 (00:15→00:35)
[2016-11-13] MEDS ORDERED: PERCOCET 5MG/325MG TAB PO PRN (01:15)
[2016-11-13] MEDS ORDERED: DAKIN'S 0.25% HALF-STRENGTH SOLN 480 ML TOP SCH (01:30)
[2016-11-13] MEDS: NS 1,000 ML IV SCH ×4 (02:30→22:13)
[2016-11-13] MEDS: PIPERACILLIN/TAZOBACTAM SOD 3.375 GM in D5W MINI-BAG PLUS 50 ML IV SCH ×3 (06:29→22:40)
[2016-11-13 06:50] LABS: BASO % 0.1 % (0.0-1.0); EOS # 0.1 K/mm3 (0.0-0.50); LARGE UNSTAINED CELL # 0.1 K/mm3 (0.0-0.4); LARGE UNSTAINED CELL % 1.3 % (0.0-4.0); LYMPH # 1.9 K/mm3 (1.5-4.5); LYMPH % 25.2 % (24.0-44.0); MEAN CORPUSCULAR HEMOGLOBIN 29.4 pg (27.0-33.0); MEAN CORPUSCULAR VOLUME 86.5 fl (80.0-96.0); MONO # 0.5 K/mm3 (0.0-0.8); MONO % 7.2 % (0.0-5.0); NEUTROPHILS # 4.7 K/mm3 (1.8-7.7); NEUTROPHILS % 65.2 % (36.0-66.0); PLATELET COUNT, AUTOMATED 193 k/mm3 (150-450); RED CELL DISTRIBUTION WIDTH 12.3 % (11.5-14.5); WHITE BLOOD COUNT 7.3 K/mm3 (4.0-10.0)
[2016-11-13 07:08] LABS: ALBUMIN 3.4 GM/DL (3.2-5.2); ALKALINE PHOSPHATASE 96 U/L (45-117); ALT/SGPT 33 U/L (12-78); ANION GAP 8 MEQ/L (8-16); AST/SGOT 12 U/L (15-37); BILIRUBIN,TOTAL 0.6 MG/DL (0.2-1.0); BLOOD UREA NITROGEN 14 MG/DL (7-18); CALCIUM LEVEL 8.4 MG/DL (8.5-10.1); CARBON DIOXIDE LEVEL 28 MEQ/L (21-32); CHLORIDE LEVEL 104 MEQ/L (98-107); CREATININE FOR GFR 1.02 MG/DL (0.70-1.30); GLOMERULAR FILTRATION RATE > 60.0 (>60); GLUCOSE, FASTING 163 MG/DL (70-105); MAGNESIUM LEVEL 2.1 MG/DL (1.8-2.4); POTASSIUM SERUM 4.4 MEQ/L (3.5-5.1); SODIUM LEVEL 140 MEQ/L (136-145); TOTAL PROTEIN 6.8 GM/DL (6.4-8.2)
[2016-11-13] MEDS: KETOROLAC 30 MG/ML VIAL (J1885) IV PRN ×2 (07:15→18:03)
--- NOTE | 2016-11-13 08:33 | CR ---
DATE OF CONSULTATION: 11/12/2016 ATTENDING PHYSICIAN: Dr. Cooney REASON FOR CONSULTATION: 41-year-old white male with a history of adult onset diabetes mellitus with a left perineal abscess. I was asked to evaluate the patient and treat definitively. CLINICAL HISTORY: 41-year-old white male who presented to the emergency room complaining of scrotal pain. The patient stated most of the pain was on the left side. The patient stated the pain started approximately 2-3 ago, but within the last 24 hours, noted erythematous changes of his scrotum and more importantly, a fluctuant area overlying the midline portion, mostly favoring the left side of the area between the scrotum and the anus. The patient denies any associated fevers or chills. Denies any dysuria. Denies problems defecating. In the emergency room, a scrotal ultrasound was obtained which showed no significant testicular pathology. Question of an epididymal cyst on the left side, but more importantly a fluctuant area between the scrotum and the anal opening to suggest a possible perineal abscess. Because of the severity of the findings on the ultrasound and the fact that the patient was diabetic, the patient was admitted for evaluation and more importantly, definitive treatment. The patient denies a prior history of perineal abscess. Denies any trauma to that area. MEDICATIONS: - Nexium - lisinopril - Lexapro - atorvastatin - ibuprofen - cinnamon - metformin ALLERGIES: No known drug allergies. PAST SURGICAL HISTORY: 1. Tonsillectomy. 2. Partial amputation of right middle finger. 3. Vasectomy. PAST MEDICAL HISTORY: 1. Hypercholesterolemia/hypertriglyceridemia. 2. Hypertension. 3. Adult onset diabetes mellitus. 4. Gastroesophageal reflux disease (GERD). 5. Depression. FAMILY HISTORY: Significant family history of heart disease and diabetes. Father has prostate cancer. Mother has arthritis. SOCIAL HISTORY: Patient is . Has five children. Patient denies smoking or alcohol usage. REVIEW OF SYSTEMS: Patient states fairly good health in spite of his multiple medical problems. Pulmonary vega, he denies any shortness of breath. Cardiovascular vega, he denies any chest pain. Gastrointestinal (GI): He does have GERD. Genitourinary (): Denies lower urinary tract symptoms (LUTS), dysuria or gross hematuria. Neurologically, he denies any seizure disorder. Psychiatric vega, the patient does have a functional disorder for which he is on Lexapro. Musculoskeletal vega, he denies any deficits. PHYSICAL EXAMINATION: Revealed as well nourished white male in mild distress secondary to his perineal discomfort. VITAL SIGNS: With a blood pressure of 147/76 with a pulse of 62, respiratory rate of 18 and temperature of 96.6. HEENT: Unremarkable. LUNGS: Clear to auscultation and percussion. HEART: Regular rate and rhythm. ABDOMEN: Obese, soft. Good bowel sounds. : Circumcised. Both testicles are down with erythematous scrotum. Palpable right epididymal cyst versus other, spermatocele. There is a fluctuant area between the scrotum and the anus. Aspiration of this area revealed purulent material. EXTREMITIES: Full range of motion. NEUROLOGICAL: He is alert and oriented times three. Labs, which includes a CBC with a white count of 6.6, hemoglobin of 14.7, hematocrit of 42.9. Differential on the white count is 66 polymorphonucleocytes , 27 lymphocytes, 5 monocytes, 1 eosinophil. BMP sodium 140, potassium 4.1, chloride 104, CO2 of 27, BUN of 19, creatinine 0.96, random glucose of 179. Urinalysis pending at the time of this dictation. IMPRESSION: 1. Abscess overlying the left perineal area. 2. Erythematous scrotum, probably a reflection of the perineal abscess. 3. Diabetes mellitus. Comorbidities include: 1. Hypertension. 2. Hypercholesterolemia. 3. Depression. 4. Left epididymal cyst. SUGGESTIONS: 1. Agree with admission. 2. Patient needs to be brought to the operating room for incision and drainage of the perineal abscess. 3. Empirical treatment with antibiotics (Zosyn). 4. Will add flagyl 5. Will continue to follow with you and make recommendations as clinical course dictates. FIDELINA
[2016-11-13] MEDS: HumaLOG INSULIN (NovoLOG) PER UNIT SC SCH ×4 (08:48→21:00)
[2016-11-13] MEDS: ATORVASTATIN 10 MG TAB PO SCH (08:49)
[2016-11-13] MEDS: OMEPRAZOLE 20 MG CAP PO SCH (08:49)
[2016-11-13] MEDS: ESCITALOPRAM OXALATE 10 MG TAB (LEXAPRO) PO SCH (08:49)
[2016-11-13] MEDS: LISINOPRIL *2.5 MG* TAB PO SCH (08:50)
--- NOTE | 2016-11-13 09:29 | RO ---
DATE OF PROCEDURE: 11/12/2016 PREOPERATIVE DIAGNOSIS: Left perineal abscess. POSTOPERATIVE DIAGNOSIS: Left perineal abscess. PROCEDURE: Incision and drainage of left perineal abscess. SURGEON: Theron Vincent MD MANAGER OF MARKETING: ANESTHESIA: General, Dr. Teran. COMPLICATIONS: None. CONDITION IN RECOVERY ROOM: Stable. SPECIMENS FORWARDED: Aerobic and anaerobic cultures taken from the abscess cavity. ESTIMATED BLOOD LOSS: Minimal. CATHETERS LEFT IN POSITION: None. CLINICAL HISTORY: 41-year-old white male who presented to the emergency room with a 2-3 day history of perineal/scrotal pain. The patient stated the pain became severe and it brought him to the emergency room today. In the emergency room, examination revealed an erythematous, swollen scrotum, but more importantly the patient had a fluctuant area overlying the perineum. Ultrasound demonstrated normal testes with findings consistent with left epididymal cyst, but more importantly, the patient had a fluctuant area situated in the perineum between the scrotal reflection and the anal opening. This was mostly favored towards the left side. Aspiration of this area in the emergency room revealed purulent material, and as such, the patient was admitted for further evaluation and more importantly, incision and drainage of the abscess. The patient was brought to the operating room for these purposes. OPERATIVE FINDINGS: The patient had a fluctuant area overlying the left perineal area. This was left of the median raphe. Incision in this area resulted in drainage of large amounts of purulent material. The cavity was estimated to be approximately 50-100 mL. The cavity was cleansed with one-quarter strength Dakin's solution following the breaking up of the loculations. Packing with iodoform laden in Dakin's and Betadine solution was used to pack the cavity. The cultures taken were both anaerobic and aerobic cultures and these were submitted for histological growth. DESCRIPTION OF PROCEDURE: The patient was brought to the operating room and positioned in supine position. Following the administration of general anesthesia, the patient was repositioned in dorsal lithotomy position. The groin area was then prepped and draped in the usual sterile manner to expose the perineal area. A #15 scalpel blade was used to make an incision overlying the fluctuant area. With scoring of the skin, there appeared to be a copious amount of purulent drainage. Once the cultures were obtained, hemostats were used to break up the loculations within the cavity. Having accomplished this, approximately 250 mL of one-quarter strength Dakin's solution was used to irrigate the cavity. Having accomplished this, and having felt that the cavity was properly irrigated, attention was directed towards the packing. Using solution comprising of one-quarter strength Dakin's and Betadine, the packing of the cavity was accomplished. Next, fluff dressing was placed over the packing followed by a mesh scrotal support. The patient was subsequently repositioned in supine position, reversed from his anesthesia, extubated and transferred to the recovery room in stable condition. The patient tolerated the procedure well.
--- NOTE | 2016-11-13 09:39 | IPNPDOC ---
Date Seen The patient was seen on 11/13/16. Progress Note Hospitalist Progress Note Subjective: Patient states he is currently feeling much better than when he arrived. He has noticed, however, he has some increased swelling of his scrotum. Objective: Physical Exam: Vitals: Vital Sign - Last 24 Hours 11/12/16 11/12/16 11/13/16 11/13/16 22:00 23:43 00:00 00:15 Temp 100.6 97.4 Pulse 71 91 83 Resp 18 20 16 16 B/P 170/79 171/80 135/64 Pulse Ox 97 93 95 O2 Delivery Room Air Nasal Cannula Room Air O2 Flow Rate 3 11/13/16 11/13/16 11/13/16 11/13/16 00:15 00:15 00:35 00:50 Temp 98.9 98.6 Pulse 73 81 Resp 16 16 16 18 B/P 137/59 134/74 Pulse Ox 94 96 97 O2 Delivery Room Air Room Air Room Air 11/13/16 11/13/16 11/13/16 11/13/16 01:20 01:50 02:50 03:50 Temp 97.4 97.6 96.3 96.7 Pulse 80 73 67 62 Resp 80 18 16 16 B/P 114/68 123/62 111/59 113/55 Pulse Ox 97 97 94 97 O2 Delivery Room Air Room Air Room Air Room Air 11/13/16 11/13/16 11/13/16 11/13/16 05:00 06:00 06:41 07:16 Temp 96.4 96.6 Pulse 61 81 Resp 18 18 18 18 B/P 137/71 118/70 Pulse Ox 97 98 O2 Delivery Room Air Room Air 11/13/16 08:50 B/P 142/68 General: Awake, alert, no acute distress HEENT: Normocephalic, atraumatic, extraocular movements intact CV: Regular rate and rhythm, no murmurs rubs or gallops Lungs: Clear to auscultation bilaterally, no wheeze Abd: Soft, nontender, nondistended : Scrotum and shaft of penis are significantly swollen and erythematous; the patient has packing in place where he underwent incision and drainage Extremities: No edema Neuro: Alert and oriented 3, normal speech Psych: normal mood and affect Labs and Imaging: Laboratory Tests 11/12/16 13:53 Calcium Level 8.6, Red Blood Count 4.98, Mean Corpuscular Volume 86.2, Mean Corpuscular Hemoglobin 29.4, Mean Corpuscular Hemoglobin Concent 34.1, Red Cell Distribution Width 12.3, Neutrophils (%) (Auto) 65.5, Lymphocytes (%) (Auto) 26.9, Monocytes (%) (Auto) 5.1 H, Eosinophils (%) (Auto) 1.4, Basophils (%) ( Auto) 0.1, Neutrophils # (Auto) 4.4, Lymphocytes # (Auto) 1.8, Monocytes # (Auto ) 0.3, Eosinophils # (Auto) 0.1, Basophils # (Auto) 0.0 11/13/16 06:33 Calcium Level 8.4 L, Red Blood Count 4.54, Mean Corpuscular Volume 86.5, Mean Corpuscular Hemoglobin 29.4, Mean Corpuscular Hemoglobin Concent 34.0, Red Cell Distribution Width 12.3, Neutrophils (%) (Auto) 65.2, Lymphocytes (%) (Auto) 25.2, Monocytes (%) (Auto) 7.2 H, Eosinophils (%) (Auto) 1.0, Basophils (%) ( Auto) 0.1, Neutrophils # (Auto) 4.7, Lymphocytes # (Auto) 1.9, Monocytes # (Auto ) 0.5, Eosinophils # (Auto) 0.1, Basophils # (Auto) 0.0, Aspartate Amino Transf (AST/SGOT) 12 L, Alanine Aminotransferase (ALT/SGPT) 33, Alkaline Phosphatase 96 , Total Bilirubin 0.6, Total Protein 6.8, Albumin 3.4 Assessment and Plan: 41-year-old male with hypertension, hyperlipidemia, GERD, mood disorder, diabetes mellitus type 2 who presented with pain and swelling below his scrotum and is admitted with cellulitis and abscess of the perineum. 1. Cellulitis and abscess of the perineum: The patient has a normal white count . However, he did have a fever overnight. He is now status post incision and drainage in the operating room with Dr. Vincent on 11/12/2016. Blood cultures, urine cultures, and abscess cultures are pending. At this time, we will continue Zosyn and Flagyl. I anticipate that when he has been afebrile for 24 hours, and culture results are back, we could switch him to an oral antibiotic. Dressing changes as per urology. 2. Hypertension: Continue home RODRÍGUEZ inhibitor. 3. Hyperlipidemia: Continue home statin. 4. GERD: Continue home PPI. 5. Mood disorder: Continue home Lexapro. 6. Diabetes mellitus type 2: The patient's A1c is 9.0. We are currently holding his home glyburide and metformin, and using sliding scale insulin while in- house. The patient does state that he has an appointment with his primary physicians to discuss changing his diabetic regimen. The importance of good glucose control in the setting of this infection was stressed to the patient, and he plans to keep follow-up with his primary physicians for further management of his diabetes. DVT prophylaxis: SCDs Dispo: pending continued urology recommendations, cultures, as well as being afebrile for 24 hours VS, I&O, 24H, Fishbone VS, I&O, 24H, Fishbone Vital Signs Date Time Temp Pulse Resp B/P Pulse Ox O2 Delivery O2 Flow Rate FiO2 11/13/16 08:50 142/68 11/13/16 07:16 18 11/13/16 06:00 96.6 81 98 Room Air 11/12/16 23:43 3 I&O- Last 24 Hours up to 6 AM 11/13/16 06:00 Intake Total 400 ml Balance 400 ml Laboratory Tests 2 11/12/16 13:53: Anion Gap 9, White Blood Count 6.6, Red Blood Count 4.98, Hemoglobin 14.7, Hematocrit 42.9, Mean Corpuscular Volume 86.2, Mean Corpuscular Hemoglobin 29.4 , Mean Corpuscular Hemoglobin Concent 34.1, Red Cell Distribution Width 12.3, Platelet Count 202, Neutrophils (%) (Auto) 65.5, Lymphocytes (%) (Auto) 26.9, Monocytes (%) (Auto) 5.1H, Eosinophils (%) (Auto) 1.4, Basophils (%) (Auto) 0.1 , Neutrophils # (Auto) 4.4, Lymphocytes # (Auto) 1.8, Monocytes # (Auto) 0.3, Eosinophils # (Auto) 0.1, Basophils # (Auto) 0.0, Blood Urea Nitrogen 19H, Creatinine 0.96, Sodium Level 140, Potassium Level 4.1, Chloride Level 104, Carbon Dioxide Level 27, Calcium Level 8.6, Glomerular Filtration Rate > 60.0, Large Unclassified Cells # 0.1, Large Unclassified Cells % 0.9 11/12/16 17:15: Bedside Glucose (Misc Panel) 147H 11/12/16 17:25: Estimated Mean Plasma Glucose 212H, Hemoglobin A1c 9.0H 11/12/16 17:34: C-Reactive Protein, Quantitative 5.45H 11/12/16 17:35: Erythrocyte Sedimentation Rate 27H 11/12/16 22:04: Urine Amorphous Sediment , Urine Appearance CLEAR, Urine Color YELLOW, Urine pH 6.0, Urine Specific [place] 1.025, Urine Protein NEGATIVE, Urine Glucose (UA) 2+ H, Urine Ketones 1+H, Urine Urobilinogen 0.2, Urine Bilirubin NEGATIVE, Urine Leukocyte Esterase NEGATIVE, Urine Bacteria (Auto) NEGATIVE, Urine Blood NEGATIVE, Urine Calcium Carbonate Cryst(Auto) , Urine Calcium Oxalate Cryst ( Auto) , Urine Calcium Phosphate Yeny (Auto) , Urine Cellular Casts , Urine Cystine Crystals , Urine Granular Casts (Auto) , Urine Hyaline Casts (Auto) 0, Urine Leucine Crystals , Urine Mucus (Auto) SMALL, Urine Nitrite NEGATIVE, Urine Oval Fat Bodies (Auto) , Urine RBC (Auto) 4H, Urine Renal Epithelial Cells , Urine Sperm (Auto) , Urine Squamous Epithelial Cells 0, Urine Transitional Epithelial Cells , Urine Trichomonas (Auto) , Urine Triple Phosphate Cryst (Auto) , Urine Tyrosine Crystals , Urine Uric Acid Crystals ( Auto) , Urine WBC (Auto) 0, Urine Waxy Casts (Auto) , Urine Yeast-Like Cells ( Auto) 11/13/16 00:29: Bedside Glucose (Misc Panel) 168H 11/13/16 06:33: Blood Urea Nitrogen 14, Creatinine 1.02, Sodium Level 140, Potassium Level 4.4, Chloride Level 104, Carbon Dioxide Level 28, Calcium Level 8.4L, Aspartate Amino Transf (AST/SGOT) 12L, Alanine Aminotransferase (ALT/SGPT) 33, Alkaline Phosphatase 96, Total Bilirubin 0.6, Total Protein 6.8, Albumin 3.4, Albumin/ Globulin Ratio 1.00, Anion Gap 8, White Blood Count 7.3, Red Blood Count 4.54, Hemoglobin 13.4L, Hematocrit 39.3L, Mean Corpuscular Volume 86.5, Mean Corpuscular Hemoglobin 29.4, Mean Corpuscular Hemoglobin Concent 34.0, Red Cell Distribution Width 12.3, Platelet Count 193, Neutrophils (%) (Auto) 65.2, Lymphocytes (%) (Auto) 25.2, Monocytes (%) (Auto) 7.2H, Eosinophils (%) (Auto) 1.0, Basophils (%) (Auto) 0.1, Neutrophils # (Auto) 4.7, Lymphocytes # (Auto) 1.9, Monocytes # (Auto) 0.5, Eosinophils # (Auto) 0.1, Basophils # (Auto) 0.0, Glomerular Filtration Rate > 60.0, Large Unclassified Cells # 0.1, Large Unclassified Cells % 1.3, Magnesium Level 2.1 Laboratory Tests 11/12/16 13:53 Calcium Level 8.6, Red Blood Count 4.98, Mean Corpuscular Volume 86.2, Mean Corpuscular Hemoglobin 29.4, Mean Corpuscular Hemoglobin Concent 34.1, Red Cell Distribution Width 12.3, Neutrophils (%) (Auto) 65.5, Lymphocytes (%) (Auto) 26.9, Monocytes (%) (Auto) 5.1 H, Eosinophils (%) (Auto) 1.4, Basophils (%) ( Auto) 0.1, Neutrophils # (Auto) 4.4, Lymphocytes # (Auto) 1.8, Monocytes # (Auto ) 0.3, Eosinophils # (Auto) 0.1, Basophils # (Auto) 0.0 11/13/16 06:33 Calcium Level 8.4 L, Red Blood Count 4.54, Mean Corpuscular Volume 86.5, Mean Corpuscular Hemoglobin 29.4, Mean Corpuscular Hemoglobin Concent 34.0, Red Cell Distribution Width 12.3, Neutrophils (%) (Auto) 65.2, Lymphocytes (%) (Auto) 25.2, Monocytes (%) (Auto) 7.2 H, Eosinophils (%) (Auto) 1.0, Basophils (%) ( Auto) 0.1, Neutrophils # (Auto) 4.7, Lymphocytes # (Auto) 1.9, Monocytes # (Auto ) 0.5, Eosinophils # (Auto) 0.1, Basophils # (Auto) 0.0, Aspartate Amino Transf (AST/SGOT) 12 L, Alanine Aminotransferase (ALT/SGPT) 33, Alkaline Phosphatase 96 , Total Bilirubin 0.6, Total Protein 6.8, Albumin 3.4 Microbiology 11/12/16 Blood Culture, Received Pending 11/12/16 Blood Culture, Received Pending 11/12/16 Gram Stain, Received Pending 11/12/16 Abscess Culture, Received Pending 11/12/16 Urine Culture, Received Pending 11/12/16 Anaerobic Culture, Received Pending 11/12/16 Abscess Culture, Worksheet Pending MECHELLE SLATER Nov 13, 2016 09:39
[2016-11-13] MEDS: metroNIDAZOLE 500 MG in APPROPRIATE DILUENT 1 EA IV SCH ×2 (11:18→23:58)
[2016-11-13] MEDS: ACETAMINOPHEN TAB 650MG DOSE (2X325MG) PO PRN ×2 (15:56→20:01)
[2016-11-13] MEDS: VANCOMYCIN HCL 1,000 MG, VIAL MATE ADAPTER 1 EACH in D5W 250 ML IV SCH (18:02)
[2016-11-14] VITALS: BP 125/66
[2016-11-14] MEDS: NS 1,000 ML IV SCH ×3 (00:30→10:58)
[2016-11-14] MEDS: VANCOMYCIN HCL 1,000 MG, VIAL MATE ADAPTER 1 EACH in D5W 250 ML IV SCH ×3 (01:43→18:06)
[2016-11-14 04:00] VITALS: BP 137/73
[2016-11-14] MEDS: PIPERACILLIN/TAZOBACTAM SOD 3.375 GM in D5W MINI-BAG PLUS 50 ML IV SCH ×3 (06:48→21:25)
[2016-11-14 06:52] LABS: BASO % 0.2 % (0.0-1.0); EOS # 0.1 K/mm3 (0.0-0.50); EOS % 1.8 % (0.0-3.0); LARGE UNSTAINED CELL # 0.1 K/mm3 (0.0-0.4); LARGE UNSTAINED CELL % 1.8 % (0.0-4.0); LYMPH # 1.5 K/mm3 (1.5-4.5); LYMPH % 23.8 % (24.0-44.0); MEAN CORPUSCULAR HEMOGLOBIN 28.9 pg (27.0-33.0); MEAN CORPUSCULAR HGB CONC 33.3 g/dl (32.0-36.5); MEAN CORPUSCULAR VOLUME 86.8 fl (80.0-96.0); MONO # 0.4 K/mm3 (0.0-0.8); MONO % 6.9 % (0.0-5.0); NEUTROPHILS # 3.9 K/mm3 (1.8-7.7); NEUTROPHILS % 65.5 % (36.0-66.0); PLATELET COUNT, AUTOMATED 207 k/mm3 (150-450); RED CELL DISTRIBUTION WIDTH 12.6 % (11.5-14.5)
[2016-11-14 07:19] LABS: ALBUMIN 2.9 GM/DL (3.2-5.2); ALBUMIN/GLOBULIN RATIO 0.83 (1.00-1.93); ALKALINE PHOSPHATASE 81 U/L (45-117); ALT/SGPT 34 U/L (12-78); ANION GAP 6 MEQ/L (8-16); AST/SGOT 16 U/L (15-37); BILIRUBIN,TOTAL 0.4 MG/DL (0.2-1.0); BLOOD UREA NITROGEN 13 MG/DL (7-18); CALCIUM LEVEL 7.9 MG/DL (8.5-10.1); CARBON DIOXIDE LEVEL 29 MEQ/L (21-32); CHLORIDE LEVEL 107 MEQ/L (98-107); CREATININE FOR GFR 0.97 MG/DL (0.70-1.30); GLOMERULAR FILTRATION RATE > 60.0 (>60); GLUCOSE, FASTING 179 MG/DL (70-105); MAGNESIUM LEVEL 2.1 MG/DL (1.8-2.4); POTASSIUM SERUM 4.4 MEQ/L (3.5-5.1); SODIUM LEVEL 142 MEQ/L (136-145); TOTAL PROTEIN 6.4 GM/DL (6.4-8.2)
[2016-11-14 08:00] VITALS: BP 109/63
[2016-11-14] MEDS: OMEPRAZOLE 20 MG CAP PO SCH (08:10)
[2016-11-14] MEDS: ESCITALOPRAM OXALATE 10 MG TAB (LEXAPRO) PO SCH (08:10)
[2016-11-14] MEDS: HumaLOG INSULIN (NovoLOG) PER UNIT SC SCH ×4 (08:10→21:26)
[2016-11-14] MEDS: ATORVASTATIN 10 MG TAB PO SCH (08:11)
--- NOTE | 2016-11-14 08:19 | PHACANCOPD ---
PHARMACY VANCOMYCIN DOSING Pt Demographics Demographics Patient Age:41 , Weight:113.400 , Gender: male Adjusted Body Weight Date: 11/14/16, Adjusted Body Weight: [96.06] Kg Events Past 24 Hours Events Past 24 Hours: YES: Fever, Pending Diagnostics Vancomycin Vancomycin indication: cellulitis Vancomycin Target Ranges: 15-20 mcg/ml Vancomycin Load Y/N: No Load Dose Date Time Vancomycin Load Dose: Date: Time: Vancomycin Dose Date: 11/14/16. Current Vancomycin Dose: [1g IV Q8H] Intermittent Dosing?: No Labs Labs Item Value Date Time White Blood Count 6.0 K/mm3 11/14/16 0629 White Blood Count 7.3 K/mm3 11/13/16 0633 White Blood Count 6.6 K/mm3 11/12/16 1353 Creatinine 0.97 MG/DL 11/14/16 0629 Creatinine 1.02 MG/DL 11/13/16 06 Creatinine 0.96 MG/DL 11/12/16 1353 Micro Microbiology 11/12/16 Blood Culture - Preliminary, Resulted No growth after 24 hours . All specim... 11/12/16 Blood Culture - Preliminary, Resulted No growth after 24 hours . All specim... 11/12/16 Gram Stain - Final, Resulted 11/12/16 Abscess Culture, Resulted Pending 11/12/16 Urine Culture, Received Pending 11/12/16 Anaerobic Culture, Received Pending 11/12/16 Abscess Culture, Worksheet Pending Creatinine Clearance Date:11/14/16. Estimated Creatinine Clearance: ~[>100 ml/min]. Pending Labs Vancomycin trough scheduled 11/15/16 @ 0900 Assessment and Plan Maintaining Current Dose?: Yes Reason for dose change: No Dose Change Pharmacist Note Pharmacist Note Date: 11/14/16. Pharmacist note: Vancomycin initiated at 1g IV Q8H for the treatment of cellulitis/perineal abscess to be given empirically with flagyl and zosyn, aiming for a goal trough of 15-20 mcg/ml. Patient is S/P incision and drainage on 11/12/16. WBC is WNL, but patient has been febrile in the past 24 hours. No PMH of MRSA or vanco use here at [facility]. All cultures are pending. A trough level has been scheduled 11/15/16 @ 0900. We will continue to monitor and make dose adjustments as needed. ALEJANDRO KOHLI PHARMACY Nov 14, 2016 08:19
[2016-11-14] MEDS: LISINOPRIL *2.5 MG* TAB PO SCH (09:00)
[2016-11-14] MEDS: metroNIDAZOLE 500 MG in APPROPRIATE DILUENT 1 EA IV SCH ×2 (10:59→23:00)
[2016-11-14 12:00] VITALS: BP 139/82
--- NOTE | 2016-11-14 14:38 | IPNPDOC ---
Date Seen The patient was seen on 11/14/16. Progress Note Hospitalist Progress Note Subjective: Patient feels much better and reports that swelling has decreased Objective: Physical Exam: Vitals: Vital Sign - Last 24 Hours 11/13/16 11/13/16 11/13/16 11/13/16 15:00 16:00 16:40 17:07 Temp 100.9 101.3 101.5 Pulse 75 70 Resp 18 16 B/P 117/69 131/66 Pulse Ox 95 97 O2 Delivery Room Air Room Air 11/13/16 11/13/16 11/13/16 11/14/16 18:31 20:00 20:00 00:00 Temp 99.2 97.9 97.6 Pulse 59 54 Resp 18 18 B/P 126/58 125/66 Pulse Ox 95 96 O2 Delivery Room Air Room Air Room Air 11/14/16 11/14/16 11/14/16 11/14/16 00:00 02:10 04:00 06:30 Temp 97.1 97.7 97.1 Pulse 59 Resp 18 B/P 137/73 Pulse Ox 97 O2 Delivery Room Air Room Air 11/14/16 11/14/16 11/14/16 08:00 09:00 12:00 Temp 98.0 98.1 Pulse 80 63 Resp 18 18 B/P 109/63 109/63 139/82 Pulse Ox 98 97 O2 Delivery Room Air Room Air General: Awake, alert, no acute distress HEENT: Normocephalic, atraumatic, extraocular movements intact CV: Regular rate and rhythm Lungs: Clear to auscultation bilaterally Abd: Soft, nontender, nondistended Extremities: No edema Neuro: Alert and oriented 3, normal speech Psych: normal mood and affect Labs and Imaging: Laboratory Tests 11/14/16 06:29 Calcium Level 7.9 L, Aspartate Amino Transf (AST/SGOT) 16, Alanine Aminotransferase (ALT/SGPT) 34, Alkaline Phosphatase 81, Total Bilirubin 0.4, Total Protein 6.4, Albumin 2.9 L, Red Blood Count 4.59, Mean Corpuscular Volume 86.8, Mean Corpuscular Hemoglobin 28.9, Mean Corpuscular Hemoglobin Concent 33.3 , Red Cell Distribution Width 12.6, Neutrophils (%) (Auto) 65.5, Lymphocytes (% ) (Auto) 23.8 L, Monocytes (%) (Auto) 6.9 H, Eosinophils (%) (Auto) 1.8, Basophils (%) (Auto) 0.2, Neutrophils # (Auto) 3.9, Lymphocytes # (Auto) 1.5, Monocytes # (Auto) 0.4, Eosinophils # (Auto) 0.1, Basophils # (Auto) 0.0 Assessment and Plan: 41-year-old male with hypertension, hyperlipidemia, GERD, mood disorder, diabetes mellitus type 2 who presented with pain and swelling below his scrotum and is admitted with cellulitis and abscess of the perineum. 1. Cellulitis and abscess of the perineum: The patient has a normal white count . However, he had multiple fevers yesterday, even while on zosyn and flagyl. Given that his initial wound gram stain had GPCs and he was having fevers on zosyn and flagyl, vancomycin was added yesterday. Now afebrile. He is now status post incision and drainage in the operating room with Dr. Vincent on 11/12. Blood cultures, urine cultures, and abscess cultures are pending. At this time, we will continue zosyn, flagyl, and vancomycin and follow up culture results. Dressing changes as per urology. 2. Hypertension: Continue home RODRÍGUEZ inhibitor. 3. Hyperlipidemia: Continue home statin. 4. GERD: Continue home PPI. 5. Mood disorder: Continue home Lexapro. 6. Diabetes mellitus type 2: The patient's A1c is 9.0. We are currently holding his home glyburide and metformin, and using sliding scale insulin while in- house. The patient does state that he has an appointment with his primary physicians to discuss changing his diabetic regimen. The importance of good glucose control in the setting of this infection was stressed to the patient, and he plans to keep follow-up with his primary physicians for further management of his diabetes. DVT prophylaxis: SCDs Dispo: pending cultures VS, I&O, 24H, Fishbone VS, I&O, 24H, Fishbone Vital Signs Date Time Temp Pulse Resp B/P Pulse Ox O2 Delivery O2 Flow Rate FiO2 11/14/16 12:00 98.1 63 18 139/82 97 Room Air 11/12/16 23:43 3 I&O- Last 24 Hours up to 6 AM 11/14/16 06:00 Intake Total 5710 ml Output Total 2100 ml Balance 3610 ml Laboratory Tests 2 11/13/16 16:37: Bedside Glucose (Misc Panel) 156H 11/13/16 21:00: Bedside Glucose (Misc Panel) 216H 11/14/16 06:29: Blood Urea Nitrogen 13, Creatinine 0.97, Sodium Level 142, Potassium Level 4.4, Chloride Level 107, Carbon Dioxide Level 29, Calcium Level 7.9L, Aspartate Amino Transf (AST/SGOT) 16, Alanine Aminotransferase (ALT/SGPT) 34, Alkaline Phosphatase 81, Total Bilirubin 0.4, Total Protein 6.4, Albumin 2.9L, Albumin/ Globulin Ratio 0.83L, Anion Gap 6L, White Blood Count 6.0, Red Blood Count 4.59 , Hemoglobin 13.3L, Hematocrit 39.8L, Mean Corpuscular Volume 86.8, Mean Corpuscular Hemoglobin 28.9, Mean Corpuscular Hemoglobin Concent 33.3, Red Cell Distribution Width 12.6, Platelet Count 207, Neutrophils (%) (Auto) 65.5, Lymphocytes (%) (Auto) 23.8L, Monocytes (%) (Auto) 6.9H, Eosinophils (%) (Auto) 1.8, Basophils (%) (Auto) 0.2, Neutrophils # (Auto) 3.9, Lymphocytes # (Auto) 1.5, Monocytes # (Auto) 0.4, Eosinophils # (Auto) 0.1, Basophils # (Auto) 0.0, Glomerular Filtration Rate > 60.0, Large Unclassified Cells # 0.1, Large Unclassified Cells % 1.8, Magnesium Level 2.1 11/14/16 13:01: Bedside Glucose (Misc Panel) 151H Laboratory Tests 11/14/16 06:29 Calcium Level 7.9 L, Aspartate Amino Transf (AST/SGOT) 16, Alanine Aminotransferase (ALT/SGPT) 34, Alkaline Phosphatase 81, Total Bilirubin 0.4, Total Protein 6.4, Albumin 2.9 L, Red Blood Count 4.59, Mean Corpuscular Volume 86.8, Mean Corpuscular Hemoglobin 28.9, Mean Corpuscular Hemoglobin Concent 33.3 , Red Cell Distribution Width 12.6, Neutrophils (%) (Auto) 65.5, Lymphocytes (% ) (Auto) 23.8 L, Monocytes (%) (Auto) 6.9 H, Eosinophils (%) (Auto) 1.8, Basophils (%) (Auto) 0.2, Neutrophils # (Auto) 3.9, Lymphocytes # (Auto) 1.5, Monocytes # (Auto) 0.4, Eosinophils # (Auto) 0.1, Basophils # (Auto) 0.0 Microbiology 11/12/16 Blood Culture - Preliminary, Resulted No growth after 24 hours . All specim... 11/12/16 Blood Culture - Preliminary, Resulted No growth after 24 hours . All specim... 11/12/16 Gram Stain - Final, Complete 11/12/16 Abscess Culture - Final, Complete 11/12/16 Urine Culture - Final, Complete 11/12/16 Anaerobic Culture, Received Pending 11/12/16 Abscess Culture, Worksheet Pending MECHELLE SLATER Nov 14, 2016 14:38
[2016-11-14 16:00] VITALS: BP 133/65
[2016-11-14 20:00] VITALS: BP 136/82
--- NOTE | 2016-11-14 21:27 | EDDOCDS ---
Physician Documentation [facility] Name: Scooter Meza Age: 41 yrs Sex: Male : 1975 Arrival Date: 11/12/2016 Time: 12:02 Bed 7 Private MD: Julio Cesar Matthews Disposition: 11/12 18:38 I have independently interviewed and examined the patient, and I agree with the sd1 investigation, diagnosis and treatment plan as documented by the Resident. Disposition: 11/12/16 18:37 Hospitalization ordered by Zulema Cooney for Inpatient Admission. Preliminary diagnosis is Cutaneous abscess, unspecified - perineal area with associated scrotal cellulitis. - Bed requested for M PED. - Status is Inpatient Admission. kmg1 - Condition is Stable. - Problem is new. - Symptoms are unchanged. Historical: - Allergies: No known drug Allergies; - Home Meds: 1. metformin 1,000 mg Oral tab 1 tab 2 times per day (Last dose: 11/12/2016 06:00) 2. omeprazole 20 mg Oral cpDR 1 cap once daily (Last dose: 11/12/2016 06:00) 3. atorvastatin 10 mg oral tab 1 tab once daily (Last dose: 11/12/2016 06:00) 4. Lexapro 20 mg Oral tab 1 tab once daily (Last dose: 11/12/2016 06:00) 5. lisinopril 10 mg Oral tab 1 tab once daily (Last dose: 11/12/2016 06:00) 6. ibuprofen 200 mg Oral tab 600 mg every 4-6 hours as needed (Last dose: 11/12/2016 06:00) 7. Cinnamon 500 mg oral cap 2 cap daily as needed (Last dose: 11/12/2016 06:00) - PMHx: Hypercholesterolemia; Hypertension; Diabetes - NIDDM: uncontrolled; GERD; - PSHx: Tonsillectomy; partial amputation right middle finger; Vasectomy; - Social history: Smoking status: Patient states was never smoker of tobacco. No barriers to communication noted, The patient speaks fluent [place]. - Family history: Not pertinent. - : The pt / caregiver states he / she is not on anticoagulants. Home medication list is obtained from the patient. - Exposure Risk Screening:: None identified. Vital Signs: 12:04 BP 147 / 76; Pulse 62; Resp 18 S; Temp 96.6(O); Pulse Ox 98% on R/A; Weight 113.4 kg / gr2 250 lbs (R); Height 6 ft. 3 in. (190.50 cm) (R); Pain 8/10; 14:46 Pain 0/10; js13 19:06 BP 146 / 83 (auto/); mv5 19:08 Pulse 66 MON; Pulse Ox 99% ; mv5 19:36 BP 137 / 79 (auto/); mv5 19:36 Pulse 62 MON; Pulse Ox 97% ; mv5 20:09 BP 132 / 80; Pulse 72; Resp 18; Temp 99.8(O); Pulse Ox 97% on R/A; Pain 0/10; kmg1 12:04 Body Mass Index 31.25 (113.40 kg, 190.50 cm) gr2 MDM: 13:19 CBC with Diff Ordered. EDMS 13:24 Acetaminophen Tablet 650 mg PO once ordered. jo4 13:25 Scrotal, US Ordered. EDMS 13:26 BMP Ordered. EDMS 13:48 Financial registration complete. mm15 14:14 DUPLEX SCAN LIMITED (DOPPLER) Ordered. EDMS 14:19 [facility] Payment Agreement was scanned into [employer] and attached to record. mm15 14:26 CBC with Diff Reviewed. sd1 14:26 BMP Reviewed. sd1 15:14 Scrotal, US Reviewed. jo4 16:44 Scrotal, US Reviewed. jo4 16:53 Pelvis, limited US Ordered. EDMS 17:16 BED REQUEST+ADM ordered. EDMS 17:21 -Blood Culture (Adults Only), peripheral from different site, or from device/port/PICC sd1 etc. if present ordered. 17:22 CRP Ordered. EDMS 17:22 Sed Rate Ordered. EDMS 17:22 -Blood Culture Ordered. EDMS 17:25 Fingerstick Blood Sugar Ordered. EDMS 17:26 -Blood Culture (Adults Only), peripheral from different site, or from device/port/PICC ar3 etc. if present complete. 17:27 Fingerstick Blood Sugar Reviewed. jo4 17:27 BLOOD CULTURES Ordered. EDMS 17:31 cefTRIAXone 1 grams IVPB once over 30 mins; dilute in 50mL of NS or D5W ordered. jo4 17:31 IV Saline Lock ordered. jo4 18:12 Sed Rate Reviewed. sd1 19:15 Admission / Observation Status ordered. EDMS 19:15 NPO DIET ordered. EDMS 19:15 URINALYSIS Ordered. EDMS 19:15 HEMOGLOBIN A1C Ordered. EDMS 19:15 URINE CULTURE Ordered. EDMS 19:16 ABSCESS CULTURE AND GRAM STAIN Ordered. EDMS 19:23 Admission Orders was scanned into [employer] and attached to record. ml3 19:24 Written Provider Order was scanned into [employer] and attached to record. ml3 19:32 CBC WITH DIFFERENTIAL Ordered. EDMS 19:32 COMPLETE COMPHRENSIVE METABOLI Ordered. EDMS 19:33 MAGNESIUM LEVEL Ordered. EDMS 21:45 T-Sheet-- Draft Copy was scanned into [employer] and attached to record. klr Administered Medications: 13:36 Drug: Acetaminophen 650 mg [acetaminophen 325 mg tablet (2 tabs)] Route: PO; js13 14:46 Follow up: Pain 0/10 Adult; Response: Pain is decreased js13 17:56 Drug: cefTRIAXone 1 grams [ceftriaxone 1 gram solution for injection] Route: IVPB; js13 Infused Over: 30 mins; Site: right antecubital; 19:03 Follow up: IV Status: Completed infusion; IV Intake: 50ml js13 Signatures: Dispatcher [employer] EDGA Anne Joshua MD MD sd1 Iwona Maldonado, RN RN kmg1 Shirlene Aparicio RN RN paddyj V[employer]uss, Logistics Solution Manager Unit ml3 Mckenna Ponce, CHINESE HERBALIST CHINESE HERBALIST ar3 Sydnie Huerta RN RN js13 Dalton Massey mm15 Carrie Novak DO DO jo4 Redder, Kathie klgildardo The chart was reviewed and I authenticate all verbal orders and agree with the evaluation and treatment provided.Corrections: (The following items were deleted from the chart) 16:52 16:50 DUPLEX SCAN LIMITED (DOPPLER)+US ordered. EDGA EDMS 16:53 16:50 US PELVIC NON-OB COMPLETE+US ordered. EDGA EDMS Attachments: 14:19 [facility] Payment Agreement mm15 19:23 Admission Orders ml3 19:24 Written Provider Order ml3 21:45 T-Sheet-- Draft Copy klr Chart Complete MTDD
--- NOTE | 2016-11-14 21:27 | EDDOCDS ---
Physician Documentation [facility] Name: Scooter Meza Age: 41 yrs Sex: Male : 1975 Arrival Date: 11/12/2016 Time: 12:02 Bed 7 Private MD: Julio Cesar Matthews Disposition: 11/12 18:38 I have independently interviewed and examined the patient, and I agree with the sd1 investigation, diagnosis and treatment plan as documented by the Resident. Disposition: 11/12/16 18:37 Hospitalization ordered by Zulema Cooney for Inpatient Admission. Preliminary diagnosis is Cutaneous abscess, unspecified - perineal area with associated scrotal cellulitis. - Bed requested for M PED. - Status is Inpatient Admission. kmg1 - Condition is Stable. - Problem is new. - Symptoms are unchanged. Historical: - Allergies: No known drug Allergies; - Home Meds: 1. metformin 1,000 mg Oral tab 1 tab 2 times per day (Last dose: 11/12/2016 06:00) 2. omeprazole 20 mg Oral cpDR 1 cap once daily (Last dose: 11/12/2016 06:00) 3. atorvastatin 10 mg oral tab 1 tab once daily (Last dose: 11/12/2016 06:00) 4. Lexapro 20 mg Oral tab 1 tab once daily (Last dose: 11/12/2016 06:00) 5. lisinopril 10 mg Oral tab 1 tab once daily (Last dose: 11/12/2016 06:00) 6. ibuprofen 200 mg Oral tab 600 mg every 4-6 hours as needed (Last dose: 11/12/2016 06:00) 7. Cinnamon 500 mg oral cap 2 cap daily as needed (Last dose: 11/12/2016 06:00) - PMHx: Hypercholesterolemia; Hypertension; Diabetes - NIDDM: uncontrolled; GERD; - PSHx: Tonsillectomy; partial amputation right middle finger; Vasectomy; - Social history: Smoking status: Patient states was never smoker of tobacco. No barriers to communication noted, The patient speaks fluent Swazi. - Family history: Not pertinent. - : The pt / caregiver states he / she is not on anticoagulants. Home medication list is obtained from the patient. - Exposure Risk Screening:: None identified. Vital Signs: 12:04 BP 147 / 76; Pulse 62; Resp 18 S; Temp 96.6(O); Pulse Ox 98% on R/A; Weight 113.4 kg / gr2 250 lbs (R); Height 6 ft. 3 in. (190.50 cm) (R); Pain 8/10; 14:46 Pain 0/10; js13 19:06 BP 146 / 83 (auto/); mv5 19:08 Pulse 66 MON; Pulse Ox 99% ; mv5 19:36 BP 137 / 79 (auto/); mv5 19:36 Pulse 62 MON; Pulse Ox 97% ; mv5 20:09 BP 132 / 80; Pulse 72; Resp 18; Temp 99.8(O); Pulse Ox 97% on R/A; Pain 0/10; kmg1 12:04 Body Mass Index 31.25 (113.40 kg, 190.50 cm) gr2 MDM: 13:19 CBC with Diff Ordered. EDMS 13:24 Acetaminophen Tablet 650 mg PO once ordered. jo4 13:25 Scrotal, US Ordered. EDMS 13:26 BMP Ordered. EDMS 13:48 Financial registration complete. mm15 14:14 DUPLEX SCAN LIMITED (DOPPLER) Ordered. EDMS 14:19 [facility] Payment Agreement was scanned into [employer] and attached to record. mm15 14:26 CBC with Diff Reviewed. sd1 14:26 BMP Reviewed. sd1 15:14 Scrotal, US Reviewed. jo4 16:44 Scrotal, US Reviewed. jo4 16:53 Pelvis, limited US Ordered. EDMS 17:16 BED REQUEST+ADM ordered. EDMS 17:21 -Blood Culture (Adults Only), peripheral from different site, or from device/port/PICC sd1 etc. if present ordered. 17:22 CRP Ordered. EDMS 17:22 Sed Rate Ordered. EDMS 17:22 -Blood Culture Ordered. EDMS 17:25 Fingerstick Blood Sugar Ordered. EDMS 17:26 -Blood Culture (Adults Only), peripheral from different site, or from device/port/PICC ar3 etc. if present complete. 17:27 Fingerstick Blood Sugar Reviewed. jo4 17:27 BLOOD CULTURES Ordered. EDMS 17:31 cefTRIAXone 1 grams IVPB once over 30 mins; dilute in 50mL of NS or D5W ordered. jo4 17:31 IV Saline Lock ordered. jo4 18:12 Sed Rate Reviewed. sd1 19:15 Admission / Observation Status ordered. EDMS 19:15 NPO DIET ordered. EDMS 19:15 URINALYSIS Ordered. EDMS 19:15 HEMOGLOBIN A1C Ordered. EDMS 19:15 URINE CULTURE Ordered. EDMS 19:16 ABSCESS CULTURE AND GRAM STAIN Ordered. EDMS 19:23 Admission Orders was scanned into [employer] and attached to record. ml3 19:24 Written Provider Order was scanned into [employer] and attached to record. ml3 19:32 CBC WITH DIFFERENTIAL Ordered. EDMS 19:32 COMPLETE COMPHRENSIVE METABOLI Ordered. EDMS 19:33 MAGNESIUM LEVEL Ordered. EDMS 21:45 T-Sheet-- Draft Copy was scanned into [employer] and attached to record. klr Administered Medications: 13:36 Drug: Acetaminophen 650 mg [acetaminophen 325 mg tablet (2 tabs)] Route: PO; js13 14:46 Follow up: Pain 0/10 Adult; Response: Pain is decreased js13 17:56 Drug: cefTRIAXone 1 grams [ceftriaxone 1 gram solution for injection] Route: IVPB; js13 Infused Over: 30 mins; Site: right antecubital; 19:03 Follow up: IV Status: Completed infusion; IV Intake: 50ml js13 Signatures: Dispatcher [employer] EDNV Anne Joshua MD MD sd1 Iwona Maldonado, RN RN kmg1 Shirlene Aparicio RN RN paddyj V[employer] Strauss, Clinical Laboratory Technologist Unit ml3 Mckenna Ponce, SALES TECHNICIAN HOME THEATER SALES TECHNICIAN HOME THEATER ar3 Sydnie Huerta RN RN js13 Dalton Masesy mm15 Carrie Novak DO DO jo4 Redder, Kathie klgildardo The chart was reviewed and I authenticate all verbal orders and agree with the evaluation and treatment provided.Corrections: (The following items were deleted from the chart) 16:52 16:50 DUPLEX SCAN LIMITED (DOPPLER)+US ordered. EDNV EDMS 16:53 16:50 US PELVIC NON-OB COMPLETE+US ordered. EDNV EDMS Attachments: 14:19 [facility] Payment Agreement mm15 19:23 Admission Orders ml3 19:24 Written Provider Order ml3 21:45 T-Sheet-- Draft Copy klr Chart Complete MTDD
--- NOTE | 2016-11-14 21:27 | EDDOCDS ---
Nurse's Notes [facility] Name: Scooter Meza Age: 41 yrs Sex: Male : 1975 Arrival Date: 11/12/2016 Time: 12:02 Bed 7 Private MD: Julio Cesar Matthews Diagnosis: Cutaneous abscess, unspecified-perineal area with associated scrotal cellulitis Presentation: 11/12 12:06 Presenting complaint: Patient states: swelling scrotum x 2 days blood sugar 247 mg/dl [facility] this morning. Adult Sepsis Screening: The patient does not have new or worsening altered mentation. Patient's respiratory rate is less than 22. Systolic blood pressure is greater than 100. Patient has a qSOFA score of 0- Negative Sepsis Screen. Suicide/Homicide risk assessment- the patient denies having any suicidal and/or homicidal ideations and does not present with any other emotional, behavioral or mental health complaints. Status: Patient is not a manager of environmental services or dependent. Transition of care: patient was not received from another setting of care. 12:06 Acuity: AYESHA Level 3 [facility] 12:06 Method Of Arrival: Walkin/Carried/Asstd [facility] Triage Assessment: 12:12 General: Appears in no apparent distress, well nourished, well groomed, Behavior is [facility] appropriate for age. Pain: Location: groin Pain currently is 0 out of 10 on a pain scale. Pt Declines HIV testing. Neurological: Level of Consciousness is awake, alert, Oriented to person, place, time. Respiratory: Airway is patent Respiratory effort is even, unlabored. GI: Denies nausea, vomiting, pain. : Reports pain swelling testicles. Derm: Skin is pink, warm & dry. Historical: - Allergies: No known drug Allergies; - Home Meds: 1. metformin 1,000 mg Oral tab 1 tab 2 times per day (Last dose: 11/12/2016 06:00) 2. omeprazole 20 mg Oral cpDR 1 cap once daily (Last dose: 11/12/2016 06:00) 3. atorvastatin 10 mg oral tab 1 tab once daily (Last dose: 11/12/2016 06:00) 4. Lexapro 20 mg Oral tab 1 tab once daily (Last dose: 11/12/2016 06:00) 5. lisinopril 10 mg Oral tab 1 tab once daily (Last dose: 11/12/2016 06:00) 6. ibuprofen 200 mg Oral tab 600 mg every 4-6 hours as needed (Last dose: 11/12/2016 06:00) 7. Cinnamon 500 mg oral cap 2 cap daily as needed (Last dose: 11/12/2016 06:00) - PMHx: Hypercholesterolemia; Hypertension; Diabetes - NIDDM: uncontrolled; GERD; - PSHx: Tonsillectomy; partial amputation right middle finger; Vasectomy; - Social history: Smoking status: Patient states was never smoker of tobacco. No barriers to communication noted, The patient speaks fluent Cymraes. - Family history: Not pertinent. - : The pt / caregiver states he / she is not on anticoagulants. Home medication list is obtained from the patient. - Exposure Risk Screening:: None identified. Screenin:30 Screening information is obtained from the patient. Fall risk: No risks identified. js13 Assistance ADL's: requires no assistance with activities of daily living. Abuse/DV Screen: The patient / caregiver reports he/she is: not in a situation that causes fear, pain or injury. Nutritional screening: No deficits noted. Advance Directives: There is no active DNR order. home support is adequate. Assessment: 13:32 General: Appears in no apparent distress, Behavior is appropriate for age, cooperative. js13 Neurological: Level of Consciousness is awake, alert. Respiratory: Airway is patent Respiratory effort is even, unlabored, Respiratory pattern is regular, symmetrical. :. Derm: Skin is pink, warm & dry. 14:13 Adult Sepsis Screening: The patient does not have new or worsening altered mentation. js13 Patient's respiratory rate is less than 22. Systolic blood pressure is greater than 100. Patient has a qSOFA score of 0- Negative Sepsis Screen. 14:13 General: Appears in no apparent distress, Behavior is appropriate for age, cooperative. js13 Neurological: Level of Consciousness is awake, alert. Respiratory: Airway is patent Respiratory effort is even, unlabored, Respiratory pattern is regular, symmetrical. Derm: Skin is pink, warm & dry. 15:30 General: Appears in no apparent distress, Behavior is appropriate for age, cooperative. js13 Pain: Denies pain. Neurological: No deficits noted. Level of Consciousness is awake, alert. Respiratory: Airway is patent Respiratory effort is even, unlabored, Respiratory pattern is regular, symmetrical. Derm: Skin is pink, warm & dry. 16:15 Adult Sepsis Screening: The patient does not have new or worsening altered mentation. js13 Patient's respiratory rate is less than 22. Systolic blood pressure is greater than 100. Patient has a qSOFA score of 0- Negative Sepsis Screen. 16:52 General: Appears in no apparent distress, Behavior is appropriate for age, cooperative. js13 Neurological: Level of Consciousness is awake, alert. Respiratory: No deficits noted. Airway is patent Respiratory effort is even, unlabored, Respiratory pattern is regular, symmetrical. Derm: Skin is pink, warm & dry. 17:31 General: Appears in no apparent distress, Behavior is appropriate for age, cooperative. js13 Pain: Denies pain. Neurological: Level of Consciousness is awake, alert. Respiratory: Airway is patent Respiratory effort is even, unlabored, Respiratory pattern is regular. Derm: Skin is pink, warm & dry. 18:33 Adult Sepsis Screening: The patient does not have new or worsening altered mentation. js13 Patient's respiratory rate is less than 22. Systolic blood pressure is greater than 100. Patient has a qSOFA score of 0- Negative Sepsis Screen. General: Appears in no apparent distress, Behavior is appropriate for age, cooperative. Pain: Denies pain. Neurological: Level of Consciousness is awake, alert. Respiratory: Airway is patent Respiratory effort is even, unlabored, Respiratory pattern is regular, symmetrical. Derm: Skin is pink, warm & dry. 19:11 General: Appears in no apparent distress, Behavior is appropriate for age, cooperative. mv5 General: Pt resting comfortably, at bedside. Hospitalist in to assess pt and discuss plan of care.. Pain: Denies pain. Neurological: Level of Consciousness is awake, alert, Oriented to person, place, time. Respiratory: Airway is patent Respiratory effort is even, unlabored, Respiratory pattern is regular, symmetrical. Derm: Skin is pink, warm & dry. 20:09 General: Appears in no apparent distress, Behavior is cooperative, pleasant. Pain: mv5 Denies pain. Neurological: Level of Consciousness is awake, alert, Oriented to person, place, time. Respiratory: Airway is patent Respiratory effort is even, unlabored, Respiratory pattern is regular, symmetrical. Derm: Skin is pink, warm & dry. Vital Signs: 12:04 BP 147 / 76; Pulse 62; Resp 18 S; Temp 96.6(O); Pulse Ox 98% on R/A; Weight 113.4 kg gr2 (R); Height 6 ft. 3 in. (190.50 cm) (R); Pain 8/10; 14:46 Pain 0/10; js13 19:06 BP 146 / 83 (auto/); mv5 19:08 Pulse 66 MON; Pulse Ox 99% ; mv5 19:36 BP 137 / 79 (auto/); mv5 19:36 Pulse 62 MON; Pulse Ox 97% ; mv5 20:09 BP 132 / 80; Pulse 72; Resp 18; Temp 99.8(O); Pulse Ox 97% on R/A; Pain 0/10; kmg1 12:04 Body Mass Index 31.25 (113.40 kg, 190.50 cm) gr2 Vitals: 12:04 Log In Time: November 12, 2016 at 12:04. gr2 ED Course: 12:03 Patient visited by Elmira Orta. gr2 12:03 Julio Cesar Matthews DO is Private Physician. gr2 12:03 Patient moved to Waiting gr2 12:05 Patient visited by Elmira Orta. gr2 12:05 Patient moved to Pre RCE gr2 12:08 Triage Initiated kpj 12:16 Sydnie Huerta,ROGERS is Primary Nurse. srm 12:16 Patient moved to 7 srm 12:23 [facility] jo4 12:23 Anne Joshua MD is Attending Physician. jo4 12:30 The patient / caregiver is instructed regarding the plan of care and ED course. js13 13:00 Patient visited by Carrie Novak DO. jo4 13:00 Patient visited by Carrie Novak DO. jo4 13:33 Patient visited by Sydnie Huerta,ROGERS. js13 13:46 Patient moved to Ultrasound am17 14:10 Patient moved to 7 am17 14:13 Patient visited by Sydnie Huerta,ROGERS. js13 14:19 [facility] Payment Agreement was scanned into [employer] and attached to record. mm15 14:43 Scrotal, US Returned. EDMS 15:25 Scrotal, US Returned. EDMS 15:47 Patient visited by Soledad Posada. nb2 16:06 Patient visited by Sydnie Huerta,ROGERS. js13 16:53 Patient visited by Sydnie Huerta,ROGERS. js13 16:57 Patient moved to Ultrasound am17 17:06 Patient moved to 7 am17 17:32 Patient visited by Sydnie Huerta,ROGERS. js13 17:32 BLOOD CULTURES Sent. js13 17:32 CRP Sent. js13 17:32 Sed Rate Sent. js13 17:56 No procedures done that require assistance. Labs drawn. (by ED staff). Sent per order js13 to lab. Labs/Blood culture drawn. 17:57 Patient visited by Krishan Nunez,ROGERS. jf3 17:57 Inserted saline lock: 18 gauge in right antecubital area The patient tolerated the jf3 procedure well. 18:19 Pelvis, limited US Returned. EDMS 18:33 Patient visited by Sydnie Huerta,ROGERS. js13 18:37 Zulema Cooney is Hospitalizing Provider. sd1 19:11 Primary Nurse role handed off by Sydnie Huerta,ROGERS mv5 19:11 Tia Patel,RN is Primary Nurse. mv5 19:11 Patient visited by Tia Patel,ROGERS. mv5 19:23 Admission Orders was scanned into [employer] and attached to record. ml3 19:24 Written Provider Order was scanned into [employer] and attached to record. ml3 19:45 Iwona Maldonado, RN is Primary Nurse. kmg1 19:59 ABSCESS CULTURE AND GRAM STAIN Sent. kmg1 21:45 T-Sheet-- Draft Copy was scanned into [employer] and attached to record. klr Administered Medications: 13:36 Drug: Acetaminophen 650 mg [acetaminophen 325 mg tablet (2 tabs)] Route: PO; js13 14:46 Follow up: Pain 0/10 Adult; Response: Pain is decreased js13 17:56 Drug: cefTRIAXone 1 grams [ceftriaxone 1 gram solution for injection] Route: IVPB; js13 Infused Over: 30 mins; Site: right antecubital; 19:03 Follow up: IV Status: Completed infusion; IV Intake: 50ml js13 Intake: 19:03 IV: 50.00ml; Total: 50.00ml. js13 Order Results: Lab Order: CBC with Diff; SPEC'M 02/04/17 13:53 Test: WHITE BLOOD COUNT; Value: 6.6; Range: 4.0-10.0; Units: K/mm3; Status: F Test: RED BLOOD COUNT; Value: 4.98; Range: 4.30-6.10; Units: M/mm3; Status: F Test: HEMOGLOBIN; Value: 14.7; Range: 14.0-18.0; Units: g/dl; Status: F Test: HEMATOCRIT; Value: 42.9; Range: 42.0-52.0; Units: %; Status: F Test: MEAN CORPUSCULAR VOLUME; Value: 86.2; Range: 80.0-96.0; Units: fl; Status: F Test: MEAN CORPUSCULAR HEMOGLOBIN; Value: 29.4; Range: 27.0-33.0; Units: pg; Status: F Test: MEAN CORPUSCULAR HGB CONC; Value: 34.1; Range: 32.0-36.5; Units: g/dl; Status: F Test: RED CELL DISTRIBUTION WIDTH; Value: 12.3; Range: 11.5-14.5; Units: %; Status: F Test: PLATELET COUNT, AUTOMATED; Value: 202; Range: 150-450; Units: k/mm3; Status: F Test: NEUTROPHILS %; Value: 65.5; Range: 36.0-66.0; Units: %; Status: F Test: LYMPH %; Value: 26.9; Range: 24.0-44.0; Units: %; Status: F Test: MONO %; Value: 5.1; Range: 0.0-5.0; Abnormal: Above high normal; Units: %; Status: F Test: EOS %; Value: 1.4; Range: 0.0-3.0; Units: %; Status: F Test: BASO %; Value: 0.1; Range: 0.0-1.0; Units: %; Status: F Test: LARGE UNSTAINED CELL %; Value: 0.9; Range: 0.0-4.0; Units: %; Status: F Test: NEUTROPHILS #; Value: 4.4; Range: 1.8-7.7; Units: K/mm3; Status: F Test: LYMPH #; Value: 1.8; Range: 1.5-4.5; Units: K/mm3; Status: F Test: MONO #; Value: 0.3; Range: 0.0-0.8; Units: K/mm3; Status: F Test: EOS #; Value: 0.1; Range: 0.0-0.50; Units: K/mm3; Status: F Test: BASO #; Value: 0.0; Range: 0.0-0.2; Units: K/mm3; Status: F Test: LARGE UNSTAINED CELL #; Value: 0.1; Range: 0.0-0.4; Units: K/mm3; Status: F Lab Order: [facility]; SPEC'M 11/12/16 13:53 Test: GLUCOSE, FASTING; Value: 179; Range: 70-105; Abnormal: Above high normal; Units: MG/DL; Status: F Test: BLOOD UREA NITROGEN; Value: 19; Range: 7-18; Abnormal: Above high normal; Units: MG/DL; Status: F Test: CREATININE FOR GFR; Value: 0.96; Range: 0.70-1.30; Units: MG/DL; Status: F Test: GLOMERULAR FILTRATION RATE; Value: > 60.0; Range: >60; Status: F Test: SODIUM LEVEL; Value: 140; Range: 136-145; Units: MEQ/L; Status: F Test: POTASSIUM SERUM; Value: 4.1; Range: 3.5-5.1; Units: MEQ/L; Status: F Test: CHLORIDE LEVEL; Value: 104; Range: 98-107; Units: MEQ/L; Status: F Test: CARBON DIOXIDE LEVEL; Value: 27; Range: 21-32; Units: MEQ/L; Status: F Test: ANION GAP; Value: 9; Range: 8-16; Units: MEQ/L; Status: F Test: CALCIUM LEVEL; Value: 8.6; Range: 8.5-10.1; Units: MG/DL; Status: F Test Note: ; Units are mL/min/1.73 m2 Chronic Kidney Disease Staging per NKF: Stage I & II GFR >=60 Normal to Mildly Decreased Stage III GFR 30-59 Moderately Decreased Stage IV GFR 15-29 Severely Decreased Stage V GFR <15 Very Little GFR Left ESRD GFR <15 on CUSTOMS GUARD Lab Order: CRP; [facility]11/12/16 17:34 Test: C REACTIVE PROTEIN QUANTITATIV; Value: 5.45; Range: 0.00-0.30; Abnormal: Above high normal; Units: MG/DL; Status: F Lab Order: Sed Rate; [facility] 11/12/16 17:35 Test: ERYTHROCYTE SEDIMENTATION RATE; Value: 27; Range: 0-15; Abnormal: Above high normal; Units: mm/hr; Status: F Lab Order: Fingerstick Blood Sugar; [facility]11/12/16 17:15 Test: BEDSIDE GLUCOSE; Value: 147; Range: 70-105; Abnormal: Above high normal; Units: MG/DL; Status: F Test Note: ; Dr Order not to Draw Lab Order: HEMOGLOBIN A1C; [facility]11/12/16 17:25 Test: HEMOGLOBIN A1c; Value: 9.0; Range: 4.5-6.2; Abnormal: Above high normal; Units: %; Status: F Test: ESTIMATED AVERAGE GLUCOSE; Value: 212; Range: 60-110; Abnormal: Above high normal; Units: MG/DL; Status: F Radiology Order: Scrotal, US Test: Scrotal, US REASON FOR EXAMINATION: Deformity/Swelling; SCROTAL SONOGRAPHY:; ; HISTORY: Swelling.; ; Comparison study February 07, 2008.; ; FINDINGS: High-resolution bilateral scrotal sonography shows no evidence of; intratesticular mass or hematoma. Right testis measures 4.4 x 2.2 x 2.9 cm.; Left testicular dimensions are 4.3 x 2.4 x 3.3 cm. No hydrocele or hernia is; seen. Epididymides are unremarkable. Normal Doppler flow is seen both testes.; Resistive indices are 0.60 and 0.55 on the right and left respectively.; ; IMPRESSION:; ; Negative scrotal sonography. No intratesticular hematoma or mass seen. Normal; Doppler flow.; ; ; Signed by; Trenton Omer MD 11/12/2016 02:57 P; Radiology Order: Pelvis, limited US Test: Pelvis, limited US REASON FOR EXAMINATION: Scrotal swelling R/O PERINEAL ABSCESS; ; HISTORY: Assess for perineal abscess; TECHNIQUE: Ultrasound and doppler examination of the perineal region was performed with grayscale, co; jeannie flow.; FINDINGS: None; In the perineal region there is a 3.0 x 3.3 x 2.3 cm complex fluid collection with peripheral flow, a; nd surrounding edema. Drainable fluid was reported by movie actor.; IMPRESSION:; 3.3 cm perineal fluid collection would be consistent with a clinical suspicion of abscess.; ; Outcome: 18:37 Decision to Hospitalize by Provider. sd1 20:06 Admission hand-off: Report called to [facility]. mv5 20:11 Discharge Assessment: Patient awake, alert and oriented x 3. No cognitive and/or mv5 functional deficits noted. Patient verbalized understanding of disposition instructions. patient administered narcotics - no. The following High Risk Discharge criteria are identified: Admitted to Pediatrics accompanied by tech, family with patient, via stretcher. Condition: stable. Ultrasound Study completed. Property :Personal belongings accompany Pt. 20:26 Patient left the ED. kmg1 Signatures: Dispatcher [employer] EDMS Anne Joshua MD MD sd1 Iwona Maldonado, RN RN kmg1 Shirlene Aparicio RN RN Ewa Youngblood, RN RN [facility] Carlos A, Lennox[place], [employer] ml3 Sydnie Huerta,RN RN js13 Elmira Orta gr2 Dalton Massey mm15 Kateryna Clark am17 Krishan Nunez,RN RN jf3 Carrie Novak DO DO jo4 Redder, Kathie klr Baart, Nicole nb2 Vannedery, Megan,RN RN mv5 Chart Complete [facility]
[2016-11-15] VITALS: BP 142/74
[2016-11-15] MEDS: VANCOMYCIN HCL 1,000 MG, VIAL MATE ADAPTER 1 EACH in D5W 250 ML IV SCH ×2 (01:16→10:24)
[2016-11-15 04:00] VITALS: BP 149/59
[2016-11-15] MEDS: PIPERACILLIN/TAZOBACTAM SOD 3.375 GM in D5W MINI-BAG PLUS 50 ML IV SCH ×3 (05:30→21:28)
[2016-11-15 08:00] VITALS: BP 140/81
[2016-11-15] MEDS: HumaLOG INSULIN (NovoLOG) PER UNIT SC SCH ×4 (08:35→21:00)
[2016-11-15 09:44] LABS: BASO % 0.4 % (0.0-1.0); EOS # 0.1 K/mm3 (0.0-0.50); EOS % 2.1 % (0.0-3.0); LARGE UNSTAINED CELL # 0.1 K/mm3 (0.0-0.4); LARGE UNSTAINED CELL % 2.3 % (0.0-4.0); LYMPH # 1.7 K/mm3 (1.5-4.5); LYMPH % 33.9 % (24.0-44.0); MEAN CORPUSCULAR HEMOGLOBIN 29.8 pg (27.0-33.0); MEAN CORPUSCULAR HGB CONC 34.9 g/dl (32.0-36.5); MEAN CORPUSCULAR VOLUME 85.4 fl (80.0-96.0); MONO # 0.3 K/mm3 (0.0-0.8); NEUTROPHILS # 2.8 K/mm3 (1.8-7.7); NEUTROPHILS % 55.3 % (36.0-66.0); PLATELET COUNT, AUTOMATED 238 k/mm3 (150-450); RED CELL DISTRIBUTION WIDTH 11.9 % (11.5-14.5); WHITE BLOOD COUNT 5.1 K/mm3 (4.0-10.0)
[2016-11-15 09:51] LABS: ALBUMIN 3.3 GM/DL (3.2-5.2); ALBUMIN/GLOBULIN RATIO 0.92 (1.00-1.93); ALKALINE PHOSPHATASE 89 U/L (45-117); ALT/SGPT 41 U/L (12-78); ANION GAP 8 MEQ/L (8-16); AST/SGOT 25 U/L (15-37); BILIRUBIN,TOTAL 0.3 MG/DL (0.2-1.0); BLOOD UREA NITROGEN 12 MG/DL (7-18); CALCIUM LEVEL 8.3 MG/DL (8.5-10.1); CARBON DIOXIDE LEVEL 27 MEQ/L (21-32); CHLORIDE LEVEL 106 MEQ/L (98-107); GLOMERULAR FILTRATION RATE > 60.0 (>60); GLUCOSE, FASTING 176 MG/DL (70-105); MAGNESIUM LEVEL 2.2 MG/DL (1.8-2.4); POTASSIUM SERUM 4.2 MEQ/L (3.5-5.1); SODIUM LEVEL 141 MEQ/L (136-145); TOTAL PROTEIN 6.9 GM/DL (6.4-8.2)
[2016-11-15] MEDS: ATORVASTATIN 10 MG TAB PO SCH (10:23)
[2016-11-15] MEDS: OMEPRAZOLE 20 MG CAP PO SCH (10:23)
[2016-11-15] MEDS: NS 1,000 ML IV SCH (10:23)
[2016-11-15] MEDS: ESCITALOPRAM OXALATE 10 MG TAB (LEXAPRO) PO SCH (10:23)
--- NOTE | 2016-11-15 10:23 | PHACANCOPD ---
PHARMACY VANCOMYCIN DOSING Pt Demographics Demographics Patient Age:41 , Weight:116.363 , Gender: male Adjusted Body Weight Date: 11/14/16, Adjusted Body Weight: [96.06] Kg Events Past 24 Hours Events Past 24 Hours: NO: Change in CrCl, Dialysis, Diuretic Therapy, Elevation in WBC, Fever, Other, Pending Diagnostics, Pending Procedures Vancomycin Vancomycin indication: cellulitis Vancomycin Target Ranges: 15-20 mcg/ml Vancomycin Load Y/N: No Load Dose Date Time Vancomycin Load Dose: Date: Time: Vancomycin Dose Date: 11/15/16. Current Vancomycin Dose: [CHANGE TO 1750MG IV Q8H @ 1000] Date: 11/14/16. Current Vancomycin Dose: [1g IV Q8H] Intermittent Dosing?: No Labs Labs Item Value Date Time White Blood Count 7.3 K/mm3 11/13/16 06 White Blood Count 6.0 K/mm3 11/14/16 06 White Blood Count 5.1 K/mm3 11/15/16 0902 Creatinine 1.02 MG/DL 11/13/16 0633 Creatinine 0.97 MG/DL 11/14/16 0629 Creatinine 0.90 MG/DL 11/15/16 0902 Vancomycin Level Trough 7.4 UG/ML L 11/15/16 0902 Micro Microbiology 11/12/16 Blood Culture - Preliminary, Resulted No Growth after 48 hours. All Specime... 11/12/16 Blood Culture - Preliminary, Resulted No Growth after 48 hours. All Specime... 11/12/16 Gram Stain - Final, Complete 11/12/16 Abscess Culture - Final, Complete 11/12/16 Urine Culture - Final, Complete 11/12/16 Anaerobic Culture, Received Pending 11/12/16 Abscess Culture, Worksheet Pending Creatinine Clearance Date:11/14/16. Estimated Creatinine Clearance: ~[>100 ml/min]. Pending Labs Vancomycin trough scheduled 11/16/16 @ 0900 Assessment and Plan Maintaining Current Dose?: No Reason for dose change: Trough too low Pharmacist Note Pharmacist Note Date: 11/15/16. Pharmacist note: Patients trough was subtherapeutic (7.4) after 5 doses. Dose was adjusted to 1750mg every 8 hours starting @ 1000. Patients renal function has been consistently > 100mls/min. Currently no growth on cultures. Trough is scheduled to be drawn after 3 of the 1750 mg doses ( @0900). Continue to monitor renal function and adjust dose as needed. Date: 11/14/16. Pharmacist note: Vancomycin initiated at 1g IV Q8H for the treatment of cellulitis/perineal abscess to be given empirically with flagyl and zosyn, aiming for a goal trough of 15-20 mcg/ml. Patient is S/P incision and drainage on 11/12/16. WBC is WNL, but patient has been febrile in the past 24 hours. No PMH of MRSA or vanco use here at [facility]. All cultures are pending. A trough level has been scheduled 11/15/16 @ 0900. We will continue to monitor and make dose adjustments as needed. NALLELY MURILLO [facility] Nov 15, 2016 10:23
[2016-11-15] MEDS: LISINOPRIL *2.5 MG* TAB PO SCH (10:24)
[2016-11-15] MEDS ORDERED: VANCOMYCIN HCL 750 MG, VIAL MATE ADAPTER 1 EACH in D5W 250 ML IV ONE (11:00)
[2016-11-15 12:00] VITALS: BP 131/76
--- NOTE | 2016-11-15 15:09 | IPN ---
DATE: 11/15/2016 SUBJECTIVE: Today the patient tells me he is feeling better. He denies any fevers or chills. He tells me that the swelling in his scrotum is decreased significantly, even within the last 24 hours. He tells me that there is very little discharge coming out at this time. He denies chest pain , shortness of breath, nausea, or vomiting. OBJECTIVE: VITAL SIGNS: Temperature 96.4, pulse 54, respiratory rate 18, blood pressure (BP) 140/81, oxygen saturation 97% on room air. GENERAL: He is an obese, middle-aged man, lying in bed at a 30-degree angle. He is in no distress. HEENT: Cranial nerves II-XII are grossly intact. He has moist mucous membranes. No elevation in central venous pressure (CVP). CARDIOVASCULAR: S1, S2, regular. RESPIRATORY: Clear. ABDOMEN: Obese. EXTREMITIES: His scrotum is erythematous and swollen. There is minimal discharge from the incision and his perineum. It is not purulent in nature. It is cloth bleaching range back tender to palpation. The patient's has been trained on how to do the dressing changes. No clubbing, cyanosis, or edema. LABORATORY STUDIES: WBC 5.1, hemoglobin 14.9, platelet count 238. Chemistry panel: Sodium 141, potassium 4.2, chloride 106, bicarbonate 27, BUN 12, creatinine 0.9. Microbiology: Perineum culture from November 12 is pending. Otherwise, an abscess culture from November 12 reveal normal sabiha. A urine culture is negative. Perineal abscess culture is negative. Blood cultures are all negative thus far. No new imaging. ASSESSMENT AND PLAN: This is a 41-year-old man with a scrotal abscess. 1. Scrotal abscess with surrounding cellulitis. The patient is afebrile since being started on vancomycin. For the time being, he has also been on Flagyl and Zosyn. At this time I will discontinue Flagyl and just continue him on the vancomycin and Zosyn. He is status post incision and drainage on 11/12/2016. Abscess culture is currently pending. Should it remain negative, I feel the patient may be able to transition to doxycycline and followup closely with urology. Dressing changes as per urology. 2. Hypertension. Continue with angiotensin-converting enzyme (RODRÍGUEZ) inhibitor. 3. Dyslipidemia. Continue home statin. 4. Gastroesophageal reflux disease. Continue with proton pump inhibitor (PPI). 5. Mood disorder. Continue with Lexapro. 6. Type 2 diabetes. The patient is on sliding-scale insulin. Fingersticks are controlled. 7. Deep vein thrombosis (DVT) prophylaxis. Sequentials. DISPOSITION: Pending improvement, the patient may be able to be discharged home within the next 24-48 hours.
[2016-11-15 16:00] VITALS: BP 122/76
[2016-11-15] MEDS: D5W IV SCH (18:18)
[2016-11-15] MEDS: VANCOMYCIN HCL PEDIATRIC IV SCH (18:18)
[2016-11-15] MEDS: BACITRACIN OINT 30GM TOP SCH (18:19)
[2016-11-15 20:00] VITALS: BP 127/77
[2016-11-16] VITALS: BP 121/70
[2016-11-16] MEDS: VANCOMYCIN HCL PEDIATRIC IV SCH ×2 (02:00→10:20)
[2016-11-16] MEDS: D5W IV SCH ×2 (02:00→10:20)
[2016-11-16 04:00] VITALS: BP 123/65
[2016-11-16] MEDS: PIPERACILLIN/TAZOBACTAM SOD 3.375 GM in D5W MINI-BAG PLUS 50 ML IV SCH (05:54)
[2016-11-16] MEDS: BACITRACIN OINT 30GM TOP SCH ×3 (05:54→13:12)
[2016-11-16 08:00] VITALS: BP 132/84
[2016-11-16] MEDS: HumaLOG INSULIN (NovoLOG) PER UNIT SC SCH ×2 (08:18→13:11)
[2016-11-16] MEDS: OMEPRAZOLE 20 MG CAP PO SCH (08:18)
[2016-11-16 08:19] VITALS: BP 132/84
[2016-11-16] MEDS: LISINOPRIL *2.5 MG* TAB PO SCH (08:19)
[2016-11-16] MEDS: ATORVASTATIN 10 MG TAB PO SCH (08:19)
[2016-11-16] MEDS: ESCITALOPRAM OXALATE 10 MG TAB (LEXAPRO) PO SCH (08:19)
[2016-11-16] MEDS ORDERED: DOXY-278 PO (08:26)
[2016-11-16] MEDS ORDERED: CEFD1CAP8 PO (08:26)
--- NOTE | 2016-11-16 09:07 | DSES ---
DATE OF ADMISSION: 11/12/2016 DATE OF DISCHARGE: DISCHARGE DIAGNOSIS: Perineal abscess. SECONDARY DIAGNOSES: 1. Cellulitis. 2. Hypertension. 3. Dyslipidemia. 4. Type 2 diabetes. 5. Depression. 6. Gastroesophageal reflux disease. CONSULTS: Dr. Hernandez - Urology. PROCEDURES: Left perineal abscess incision and drainage in the operating room on 11/12/2016. HOSPITAL COURSE: The patient is a 41-year-old man who initially presented on the with complaints of pain below his scrotum for 2-3 days. He had had significant swelling, redness and pain associated in the area. The patient stated that three days earlier he had been playing with his daughter and got kicked in his testicle. At that point, he had severe pain, but it subsided. Then he noticed progressively worsening swelling and redness over the area. He did have chills and a temperature of 100 at the time of admission. The patient was seen by urology who had taken him to the operating room for an incision and drainage where they drained approximately 50 to 100 mL. His occult blood cultures were negative. All of his wound cultures and abscess cultures were negative. The patient was initially on ciprofloxacin and Flagyl; however, he continued to spike fevers. He was switched to vancomycin and had a very positive response with significantly decreased swelling. He has been afebrile for several days at this point. His pain is under control and he is not requiring any narcotic pain medication. SUBJECTIVE: Today, the patient tells me he feels well. He has no specific complaints. He denies chest pain, shortness of breath, fever, chills, nausea, vomiting or diarrhea. He tells me the pain is significantly better and the swelling is decreased even significantly from yesterday. OBJECTIVE: VITAL SIGNS: Temperature 96.5, pulse 63, respiratory rate 18, blood pressure 123/65 and oxygen saturation 93% on room air. GENERAL: He is a very pleasant, middle-aged, obese, man sitting on the edge of the bed. He is in no distress. HEENT: Cranial nerves II-XII are grossly intact. CARDIOVASCULAR EXAM: S1, S2, regular. RESPIRATORY EXAM: Clear. ABDOMINAL EXAM: Obese. EXTREMITIES: No clubbing, cyanosis or edema. His scrotum swelling is markedly decreased from yesterday. His small left perineal incision is packed. The erythema is markedly decreased. LABORATORY STUDIES: From yesterday, WBC 5.1, hemoglobin 14.9, hematocrit 42.8 and platelet count 238. Chemistry panel: Sodium 141, potassium 4.2, chloride 106, bicarbonate 27, BUN 12, creatinine 0.9. As mentioned above, microbiology was all negative. Pelvic ultrasound revealed a 3.3 cm perineal fluid collection consistent with abscess, that was on the 4th, prior to surgery. As well, the patient had a scrotal ultrasound that was dopplered and revealed normal flow. ASSESSMENT AND PLAN: This is a 41-year-old man with left perineal abscess and surrounding cellulitis. PROBLEMS: 1. Left perineal abscess and cellulitis. Urology's help has been greatly appreciated. The patient at this time will be discharged on doxycycline 100 mg by mouth twice a day and Omnicef 300 mg by mouth twice a day for ten days to complete treatment for cellulitis and resolving abscess. He will followup with urology within two weeks. His has been trained in how to complete the dressing changes and has practiced over the last several days. The dressing changes are to be conducted as per urology's recommendations. They are okay with his discharge home. He has been fever free for greater than 48 hours. 2. Hypertension. The patient is on RODRÍGUEZ inhibitor. 3. Dyslipidemia. The patient is on statin. 4. Gastroesophageal reflux disease. The patient is on a proton pump inhibitor (PPI). 5. Depression. The patient is on Lexapro. 6. Type 2 diabetes. He has been on sliding scale insulin while here. His home agents will be restarted upon discharge. He will followup with his primary care provider (PCP) within 7 days. He has been told he will likely be started on Victoza at that time. 7. Deep vein thrombosis (DVT) prophylaxis. The patient has been on sequentials and ambulating. DISPOSITION: The patient is being discharged home to the care of his family. He is to followup with his PCP in 7 days and urology within 2 weeks. Diet and activity are as prior to admission. Wound care as per urology. He has been advised to return to the emergency room (ER) if his symptoms worsen. Medications at the time of discharge are Cefdinir 300 mg by mouth twice a day, doxycycline 100 mg by mouth twice a day, both for 10 days supply. Atorvastatin 10 mg daily, cinnamon bark 1 gram daily as per the patient, Lexapro 20 mg daily, glyburide 2.5 mg daily, ibuprofen 600 mg every 4 hours as needed for pain, lisinopril 2.5 mg daily, metformin 1 gram twice a day, omeprazole 40 mg daily. Greater than 30 minutes was spent organizing disposition.
[2016-11-16 10:00] LABS: BASO % 0.6 % (0.0-1.0); EOS # 0.1 K/mm3 (0.0-0.50); EOS % 2.3 % (0.0-3.0); LARGE UNSTAINED CELL # 0.1 K/mm3 (0.0-0.4); LARGE UNSTAINED CELL % 2.6 % (0.0-4.0); LYMPH # 1.6 K/mm3 (1.5-4.5); LYMPH % 36.6 % (24.0-44.0); MEAN CORPUSCULAR HEMOGLOBIN 28.9 pg (27.0-33.0); MEAN CORPUSCULAR HGB CONC 33.5 g/dl (32.0-36.5); MEAN CORPUSCULAR VOLUME 86.1 fl (80.0-96.0); MONO # 0.2 K/mm3 (0.0-0.8); MONO % 4.5 % (0.0-5.0); NEUTROPHILS # 2.3 K/mm3 (1.8-7.7); NEUTROPHILS % 53.4 % (36.0-66.0); PLATELET COUNT, AUTOMATED 256 k/mm3 (150-450); RED CELL DISTRIBUTION WIDTH 11.9 % (11.5-14.5); WHITE BLOOD COUNT 4.3 K/mm3 (4.0-10.0)
[2016-11-16 10:30] LABS: ALBUMIN 3.5 GM/DL (3.2-5.2); ALBUMIN/GLOBULIN RATIO 0.97 (1.00-1.93); ALKALINE PHOSPHATASE 89 U/L (45-117); ALT/SGPT 59 U/L (12-78); ANION GAP 9 MEQ/L (8-16); AST/SGOT 34 U/L (15-37); BILIRUBIN,TOTAL 0.4 MG/DL (0.2-1.0); BLOOD UREA NITROGEN 13 MG/DL (7-18); CALCIUM LEVEL 8.8 MG/DL (8.5-10.1); CARBON DIOXIDE LEVEL 29 MEQ/L (21-32); CHLORIDE LEVEL 102 MEQ/L (98-107); CREATININE FOR GFR 1.12 MG/DL (0.70-1.30); GLOMERULAR FILTRATION RATE > 60.0 (>60); GLUCOSE, FASTING 241 MG/DL (70-105); MAGNESIUM LEVEL 2.1 MG/DL (1.8-2.4); POTASSIUM SERUM 4.3 MEQ/L (3.5-5.1); SODIUM LEVEL 140 MEQ/L (136-145); TOTAL PROTEIN 7.1 GM/DL (6.4-8.2)
[2016-11-16 12:00] VITALS: BP 132/72
== END 2016-11-16 13:45 | disposition home or self-care (01) | DRG 364 ==
LOC: M ED 12:02 → M ED INP 19:05 → M PED 20:26
PROVIDERS: ADMIT Internal Medicine; ATTEND Hospitalist
PROC: 0J9B0ZZ Drainage of Perineum Subcutaneous Tissue and Fascia, Open Approach (ICD-10-PCS; principal; 2016-11-12 22:50)
DX: L02.215 Cutaneous abscess of perineum (principal); I10 Essential (primary) hypertension; E78.5 Hyperlipidemia, unspecified; F32.9 Major depressive disorder, single episode, unspecified; K21.9 Gastro-esophageal reflux disease without esophagitis; E11.9 Type 2 diabetes mellitus without complications; Z79.899 Other long term (current) drug therapy; Z83.3 Family history of diabetes mellitus; Z80.42 Family history of malignant neoplasm of prostate; L72.0 Epidermal cyst; F39 Unspecified mood [affective] disorder

== ENCOUNTER → 2016-11-21 | Outpatient (REF) | payer BC ==
[~2016-11-21] MED LIST: ATOR1TAB19 PO; CEFD1CAP8 PO; CINN500C9 PO; DOXY-278 PO; GLYB25TA PO; IBUP60TA PO; LEXA1TAB2 PO; LISI2.5T3 PO; METF1000 PO; OMEP40CA2 PO
== END | disposition home or self-care (01) ==
LOC: M SFHCPLAZ 11:14
PROVIDERS: ATTEND Family Medicine
DX: Z53.8 Procedure and treatment not carried out for other reasons (principal); E11.9 Type 2 diabetes mellitus without complications

== ENCOUNTER → 2017-01-30 | Outpatient (REF) | payer BC | LOC: M SFHCPLAZ 08:34 | PROVIDERS: ATTEND Family Medicine | DX: E11.9 Type 2 diabetes mellitus without complications (principal) ==

== ENCOUNTER 2017-12-13 12:24 | Emergency (ER) | payer OTHER, BC | END 2017-12-13 14:36 | disposition home or self-care (01) | LOC: M ED 12:24 | DX: S50.12XA Contusion of left forearm, initial encounter (principal); W19.XXXA Unspecified fall, initial encounter; Y92.59 Other trade areas as the place of occurrence of the external cause; Y99.0 Civilian activity done for income or pay; I10 Essential (primary) hypertension; E78.00 Pure hypercholesterolemia, unspecified; Z79.84 Long term (current) use of oral hypoglycemic drugs; Z79.2 Long term (current) use of antibiotics; Z79.899 Other long term (current) drug therapy | CPT/HCPCS: 73090 ==

== ENCOUNTER → 2018-04-10 | Outpatient (CLI) | payer BC ==
[2018-04-10 09:02] LABS: ANION GAP 9 MEQ/L (8-16); BLOOD UREA NITROGEN 14 MG/DL (7-18); CALCIUM LEVEL 8.5 MG/DL (8.5-10.1); CARBON DIOXIDE LEVEL 27 MEQ/L (21-32); CHLORIDE LEVEL 105 MEQ/L (98-107); CREATININE FOR GFR 1.01 MG/DL (0.70-1.30); GLOMERULAR FILTRATION RATE > 60.0 (>60); GLUCOSE, FASTING 275 MG/DL (70-100); POTASSIUM SERUM 4.3 MEQ/L (3.5-5.1); SODIUM LEVEL 141 MEQ/L (136-145)
[2018-04-10 09:29] LABS: ESTIMATED AVERAGE GLUCOSE 249 MG/DL (60-110); HEMOGLOBIN A1c 10.3 %
== END ==
LOC: M LAB 07:57
DX: E11.9 Type 2 diabetes mellitus without complications (principal)

== ENCOUNTER 2018-04-11 19:57 | Emergency (ER) | payer BC ==
[2018-04-11] MEDS: BACTRIM 160MG/800MG DS TAB PO (20:59)
== END 2018-04-11 21:15 | disposition home or self-care (01) ==
LOC: M ED 19:57
DX: L02.01 Cutaneous abscess of face (principal); E11.9 Type 2 diabetes mellitus without complications; I10 Essential (primary) hypertension; Z79.84 Long term (current) use of oral hypoglycemic drugs; Z79.899 Other long term (current) drug therapy
CPT/HCPCS: 99283

== ENCOUNTER → 2019-01-20 | Outpatient (CLI) | payer OTHER ==
[~2019-01-20] MED LIST changes: +BACT800T5 PO; -DOXY-278 PO; +DOXY-350 PO; +IBUP1TAB6 PO; -IBUP60TA PO; +LISI-1046 PO; -LISI2.5T3 PO; -METF1000 PO; +METF10004 PO
[2019-01-20 10:37] LABS: MALB URINE SIEMENS 24.6 MG/L; MAU/CREAT RATIO 14.3 MCG/MG (0.0-30.0)
[2019-01-20 10:58] LABS: HEMOGLOBIN A1c 11.6 %
== END ==
LOC: M LAB 09:23
PROVIDERS: ATTEND Family Medicine
DX: E11.9 Type 2 diabetes mellitus without complications (principal)

== ENCOUNTER → 2019-05-15 | Outpatient (REF) | payer OTHER ==
[2019-05-15 13:30] LABS: HEMOGLOBIN A1c 11.1 %
== END ==
LOC: M SFHCPLAZ 10:55
PROVIDERS: ATTEND Family Medicine
DX: E11.9 Type 2 diabetes mellitus without complications (principal)

== ENCOUNTER 2019-05-16 19:10 | Emergency (ER) | payer BC ==
[~2019-05-16] VITALS: Ht 188 cm; Wt 110.5 kg
[2019-05-16 20:13] LABS: BASO % 0.2 % (0.0-1.0); EOS # 0.1 10^3/uL (0.0-0.50); EOS % 0.8 % (0.0-3.0); HEMATOCRIT 44.1 % (42.0-52.0); HEMOGLOBIN 15.2 g/dl (13.5-17.5); LYMPH # 1.9 10^3/uL (1.5-4.5); LYMPH % 28.2 % (24.0-44.0); MEAN CORPUSCULAR HEMOGLOBIN 29.5 pg (27.0-33.0); MEAN CORPUSCULAR HGB CONC 34.5 g/dl (32.0-36.5); MEAN CORPUSCULAR VOLUME 85.5 fl (80.0-96.0); MONO # 0.6 10^3/uL (0.0-0.8); MONO % 9.2 % (0.0-5.0); NEUTROPHILS # 4.1 10^3/uL (1.8-7.7); NEUTROPHILS % 61.4 % (36.0-66.0); PLATELET COUNT, AUTOMATED 180 10^3/uL (150-450); RED BLOOD COUNT 5.16 10^6/uL (4.30-6.10); WHITE BLOOD COUNT 6.6 10^3/uL (4.0-10.0)
[2019-05-16 20:22] LABS: APPEARANCE, URINE CLEAR (CLEAR); BACTERIA, URINE AUTO NEGATIVE (NEGATIVE); BILIRUBIN, URINE AUTO NEGATIVE (NEGATIVE); BLOOD, URINE BLOOD NEGATIVE (NEGATIVE); COLOR, URINE YELLOW (YELLOW); GLUCOSE, URINE (UA) AUTO 3+ mg/dL (NEGATIVE); KETONE, URINE AUTO 1+ mg/dL (NEGATIVE); LEUKOCYTE ESTERASE, URINE AUTO NEGATIVE (NEGATIVE); NITRITE, URINE AUTO NEGATIVE (NEGATIVE); PROTEIN, URINE AUTO 1+ mg/dL (NEGATIVE); RBC, URINE AUTO 2 /HPF (0-3); SPECIFIC GRAVITY URINE AUTO 1.047 (1.002-1.035); SQUAMOUS EPITHELIAL CELL UR AU 0 /HPF (0-6); UROBILINOGEN, URINE AUTO 0.2 mg/dL (0.0-2.0); WBC, URINE AUTO 0 /HPF (0-3)
[2019-05-16 20:34] LABS: ALBUMIN 3.8 GM/DL (3.2-5.2); ALT/SGPT 33 U/L (12-78); BILIRUBIN,TOTAL 0.6 MG/DL (0.2-1.0); BLOOD UREA NITROGEN 17 MG/DL (7-18); CALCIUM LEVEL 9.1 MG/DL (8.5-10.1); CARBON DIOXIDE LEVEL 28 MEQ/L (21-32); CHLORIDE LEVEL 100 MEQ/L (98-107); CREATININE FOR GFR 1.23 MG/DL (0.70-1.30); GLOMERULAR FILTRATION RATE > 60.0 (>60); GLUCOSE, FASTING 248 MG/DL (70-100); POTASSIUM SERUM 4.5 MEQ/L (3.5-5.1); SODIUM LEVEL 134 MEQ/L (136-145); TOTAL PROTEIN 7.3 GM/DL (6.4-8.2)
--- NOTE | 2019-05-16 21:02 | REPVR ---
EXAM: US Scrotum EXAM DATE/TIME: 05/16/2019 8:48 PM CLINICAL HISTORY: 43 years old, male; Scrotum pain and other: Perineal area; Prior surgery; Surgery date: 6+ months; Surgery type: Patient had prior perineal abscess drained years ago; Additional info: Red, hot, swollen testicles TECHNIQUE: Imaging protocol: Real-time ultrasound of the scrotum and contents with color Doppler and image documentation. COMPARISON: Scrotal, US 11/12/2016 2:04 PM FINDINGS: Right Testicle: Right testis measures 4 point 2 x 2.5 x 2.9 cm. Normal echotexture and echogenicity. Normal flow. RI 0.71 Left Testicle: Left testis measures 3.4 x 2 x 3 cm. Normal echotexture and echogenicity. Normal flow. RI 0.57 Epididymides: Right epididymal head 9.6 mm. Left epididymal head 5.8 mm. Scrotum: Complex irregular fluid collection demonstrated in the perineal region at the posterior scrotum measures 5.5 x 2.9 x 2.7 cm. Particulate material demonstrated within the fluid. Findings may represent an abscess. Mild bilateral thickening of the scrotal wall measures 6 mm on the right 5 mm on the left. IMPRESSION: Complex irregular fluid collection demonstrated in the perineal region at the posterior scrotum measures 5.5 x 2.9 x 2.7 cm. Particulate material demonstrated within the fluid. Findings may represent an abscess. Electronically signed by: Surjit Vigil On 05/16/2019 21:02:14 PM
[2019-05-16] MEDS ORDERED: KETOROLAC 30 MG/ML VIAL (J1885) IV ONE (21:30)
[2019-05-16] MEDS ORDERED: NS 1,000 ML IV ONE (21:30)
[2019-05-16] MEDS ORDERED: MORPHINE 4 MG/ML 1ML VIAL/SYRINGE (J2270) IV ONE (22:45)
--- NOTE | 2019-05-16 22:52 | CR.PDOC ---
General Date of Consultation: May 16, 2019 Consultation REASON FOR CONSULTATION/CHIEF COMPLAINT: Perineal abscess HISTORY OF PRESENT ILLNESS: 43-year-old male with a 2 day history of left-sided perineal pain. Patient was seen by his primary care physician and started on Keflex yesterday. He noted increasing swelling of the perineum over the past 24 hours associated with a low-grade temperature. Patient was seen in the emergency department and an ultrasound was obtained. A perineal abscess was noted on the left side. The testis were noted to be normal. Patient denies any voiding symptoms. He denies blood in the stool. He has no history of urethral stricture. Patient has a history of a perineal abscess on the left side 2 years ago which was drained in the operating room. Patient does have a history of diabetes mellitus and hypertension. ALLERGIES: Please see below. HOME MEDICATIONS: Please see below. PAST MEDICAL HISTORY: 1. Diabetes mellitus. 2. Hypertension. PAST SURGICAL HISTORY: 1. Incision and drainage of perineal abscess 2. Tonsillectomy Review of systems: 10 point review of systems was unremarkable PHYSICAL EXAMINATION: VITAL SIGNS: Please see below. GENERAL APPEARANCE: Well-developed well-nourished male lying comfortably on the stretcher. HEENT: Unremarkable. RESPIRATORY: No respiratory distress. CARDIOVASCULAR: No peripheral edema. ABDOMEN: Soft nontender with no masses. : Penis normal with no lesions, meatus normal. Scrotum unremarkable. There was no swelling or erythema. Testes descended bilaterally and unremarkable. A indurated slightly fluctuant area was present in the left perineum which was not communicating with the scrotum or perirectal region PSYCHIATRIC: Awake and alert, oriented 3. Laboratory Tests 05/16/19 20:05 Red Blood Count 5.16, Mean Corpuscular Volume 85.5, Mean Corpuscular Hemoglobin 29.5, Mean Corpuscular Hemoglobin Concent 34.5, Red Cell Distribution Width 12.1, Neutrophils (%) (Auto) 61.4, Lymphocytes (%) (Auto) 28.2, Monocytes (%) (Auto) 9.2 H, Eosinophils (%) (Auto) 0.8, Basophils (%) (Auto) 0.2, Neutrophils # (Auto) 4.1, Lymphocytes # (Auto) 1.9, Monocytes # (Auto) 0.6, Eosinophils # (Auto) 0.1, Basophils # (Auto) 0.0, Calcium Level 9.1, Aspartate Amino Transf (AST/SGOT) 11, Alanine Aminotransferase (ALT/SGPT) 33, Alkaline Phosphatase 100, Total Bilirubin 0.6, Total Protein 7.3, Albumin 3.8 LABORATORY DATA: Please see below. ASSESSMENT/PLAN: 1. Left-sided perineal abscess. Patient was consented for incision and drainage. Material risks and potential complications were discussed. Patient's scrotum and perineum were prepped and draped in usual sterile fashion. Local anesthesia utilizing 1% lidocaine was administered around the fluctuant area in the left perineum. Once good anesthesia was obtained an incision was made across the fluctuant area. A pocket was present and approximately 30 mL of purulent material was drained. Cultures were obtained. The cavity was irrigated with hydrogen peroxide. No further collections were noted. The abscess cavity was packed with 1/2 inch iodoform packing. A scrotal support was placed with dressings over the abscess. Patient tolerated the procedure well. Patient will be discharged home with follow-up in 24 hours in the office. Patient will continue Keflex 500 mg every 6 hours. Vital Signs/I&O Vital Signs Date Time Temp Pulse Resp B/P (MAP) Pulse Ox O2 Delivery O2 Flow Rate FiO2 05/16/19 21:50 98.3 05/16/19 19:16 05/16/19 19:10 85 18 97 Room Air Laboratory Data Labs 24H Laboratory Tests 2 05/16/19 20:05: Immature Granulocyte % (Auto) 0.2, White Blood Count 6.6, Red Blood Count 5.16, Hemoglobin 15.2, Hematocrit 44.1, Mean Corpuscular Volume 85.5, Mean Corpuscular Hemoglobin 29.5, Mean Corpuscular Hemoglobin Concent 34.5, Red Cell Distribution Width 12.1, Platelet Count 180, Neutrophils (%) (Auto) 61.4, Lymphocytes (%) (Auto) 28.2, Monocytes (%) (Auto) 9.2H, Eosinophils (%) (Auto) 0.8, Basophils (%) (Auto) 0.2, Neutrophils # (Auto) 4.1, Lymphocytes # (Auto) 1.9, Monocytes # (Auto) 0.6, Eosinophils # (Auto) 0.1, Basophils # (Auto) 0.0, Nucleated Red Blood Cells % (auto) 0.0, Anion Gap 6L, Glomerular Filtration Rate > 60.0, Lactic Acid Level 0.9, Blood Urea Nitrogen 17, Creatinine 1.23, Sodium Level 134L, Potassium Level 4.5, Chloride Level 100, Carbon Dioxide Level 28, Calcium Level 9.1, Aspartate Amino Transf (AST/SGOT) 11, Alanine Aminotransferase (ALT/SGPT) 33, Alkaline Phosphatase 100, Total Bilirubin 0.6, Total Protein 7.3, Albumin 3.8, Albumin/Globulin Ratio 1.09 05/16/19 20:09: Urine Appearance CLEAR, Urine Color YELLOW, Urine pH 5.0, Urine Specific [place] 1.047, Urine Protein 1+H, Urine Glucose (UA) 3+H, Urine Ketones 1+H, Urine Urobilinogen 0.2, Urine Bilirubin NEGATIVE, Urine Leukocyte Esterase NEGATIVE, Urine Blood NEGATIVE, Urine Nitrite NEGATIVE, Urine WBC (Auto) 0, Urine RBC (Auto) 2, Urine Hyaline Casts (Auto) 0, Urine Bacteria (Auto) NEGATIVE, Urine Squamous Epithelial Cells 0, Urine Sperm (Auto) CBC/BMP Laboratory Tests 05/16/19 20:05 Red Blood Count 5.16, Mean Corpuscular Volume 85.5, Mean Corpuscular Hemoglobin 29.5, Mean Corpuscular Hemoglobin Concent 34.5, Red Cell Distribution Width 12.1, Neutrophils (%) (Auto) 61.4, Lymphocytes (%) (Auto) 28.2, Monocytes (%) (Auto) 9.2 H, Eosinophils (%) (Auto) 0.8, Basophils (%) (Auto) 0.2, Neutrophils # (Auto) 4.1, Lymphocytes # (Auto) 1.9, Monocytes # (Auto) 0.6, Eosinophils # (Auto) 0.1, Basophils # (Auto) 0.0, Calcium Level 9.1, Aspartate Amino Transf (AST/SGOT) 11, Alanine Aminotransferase (ALT/SGPT) 33, Alkaline Phosphatase 100, Total Bilirubin 0.6, Total Protein 7.3, Albumin 3.8 Microbiology Microbiology 05/16/19 Blood Culture, Received Pending Allergies Coded Allergies: No Known Allergies (Unverified , 05/16/19) Home Medications Scheduled Atorvastatin Calcium (Atorvastatin Calcium) 10 Mg Tab, 10 MG PO DAILY, (Reported) Cinnamon Bark (Cinnamon) 500 Mg Cap, 1,000 MG PO DAILY, (Reported) Escitalopram Oxalate (Lexapro) 20 Mg Tab, 20 MG PO DAILY, (Reported) Lisinopril (Lisinopril) 2.5 Mg Tab, 2.5 MG PO DAILY, (Reported) Metformin HCl (Metformin HCl) 1,000 Mg Tab, 1,000 MG PO BID, (Reported) Omeprazole (Omeprazole) 40 Mg Cap, 40 MG PO DAILY, (Reported) Sulfamethoxazole/Trimethoprim (Bactrim Ds Tablet) 1 Tab Tab, 1 TAB PO Q12H, #14 Tim Marroquin MD May 16, 2019 22:52
[2019-05-16 23:47] VITALS: BP 143/76
--- NOTE | 2019-05-26 21:22 | ED PDOC ---
Post-Departure Follow-Up dr cabrera and dr michaels faxed formal report of scrotal us for fu Henri Abbott MD May 26, 2019 21:22
== END 2019-05-17 00:08 | disposition home or self-care (01) ==
LOC: M ED 19:10
DX: L02.215 Cutaneous abscess of perineum (principal); R50.9 Fever, unspecified; E11.9 Type 2 diabetes mellitus without complications; I10 Essential (primary) hypertension; E78.5 Hyperlipidemia, unspecified; Z79.899 Other long term (current) drug therapy; Z79.84 Long term (current) use of oral hypoglycemic drugs; Z79.2 Long term (current) use of antibiotics
CPT/HCPCS: 46040; 76870; 80053; 81001; 83605; 85025; 87040; 87070; 87205; 96361; 96374; 96375; 99284; J1885; J2270

== ENCOUNTER → 2019-11-11 | Outpatient (REF) | payer BC ==
[~2019-11-11] MED LIST changes: -OMEP40CA2 PO; +OMEP40CA97 PO
== END ==
LOC: M SFHCPLAZ 14:08
PROVIDERS: ATTEND Family Medicine
DX: E11.9 Type 2 diabetes mellitus without complications (principal); E78.5 Hyperlipidemia, unspecified; I10 Essential (primary) hypertension

== ENCOUNTER → 2019-12-24 | Outpatient (REF) | payer BC ==
[2019-12-24 10:19] LABS: HEMATOCRIT 44.5 % (42.0-52.0); HEMOGLOBIN 15.1 g/dl (13.5-17.5); MEAN CORPUSCULAR HEMOGLOBIN 28.5 pg (27.0-33.0); MEAN CORPUSCULAR HGB CONC 33.9 g/dl (32.0-36.5); MEAN CORPUSCULAR VOLUME 84.1 fl (80.0-96.0); PLATELET COUNT, AUTOMATED 257 10^3/uL (150-450); RED BLOOD COUNT 5.29 10^6/uL (4.30-6.10)
[2019-12-24 10:40] LABS: HEMOGLOBIN A1c 9.4 %
[2019-12-24 10:44] LABS: ALBUMIN 3.7 GM/DL (3.2-5.2); ALT/SGPT 48 U/L (12-78); BILIRUBIN,TOTAL 0.3 MG/DL (0.2-1.0); BLOOD UREA NITROGEN 15 MG/DL (7-18); CALCIUM LEVEL 8.8 MG/DL (8.5-10.1); CARBON DIOXIDE LEVEL 30 MEQ/L (21-32); CHLORIDE LEVEL 105 MEQ/L (98-107); CHOLESTEROL LEVEL 183 MG/DL (<200); CHOLESTEROL RISK RATIO 5.903 (<5); CREATININE FOR GFR 1.06 MG/DL (0.70-1.30); GLOMERULAR FILTRATION RATE > 60.0 (>60); GLUCOSE, FASTING 216 MG/DL (70-100); HDL CHOLESTEROL 31 MG/DL (>40); LDL CHOLESTEROL 112 MG/DL (<100); NON-HDL-C 152 MG/DL; POTASSIUM SERUM 4.5 MEQ/L (3.5-5.1); SODIUM LEVEL 140 MEQ/L (136-145); TRIGLYCERIDES LEVEL 200 MG/DL (<150)
[2019-12-24 10:53] LABS: MALB URINE SIEMENS 36.2 MG/L; MAU/CREAT RATIO 11.9 MCG/MG (0.0-30.0)
== END ==
LOC: M SFHCPLAZ 07:57
PROVIDERS: ATTEND Family Medicine
DX: E11.9 Type 2 diabetes mellitus without complications (principal); E78.5 Hyperlipidemia, unspecified; I10 Essential (primary) hypertension

== ENCOUNTER → 2020-02-29 | Outpatient (CLI) | payer BC ==
[~2020-02-29] MED LIST changes: -LISI-1046 PO; +LISI2.5T2 PO
[2020-02-29 09:36] LABS: MALB URINE SIEMENS 39.1 MG/L; MAU/CREAT RATIO 11.3 MCG/MG (0.0-30.0)
== END ==
LOC: M LAB 08:25
PROVIDERS: ATTEND Student in an Organized Health Care Education/Training Program
DX: E11.9 Type 2 diabetes mellitus without complications (principal)

== ENCOUNTER 2020-10-11 10:23 | Emergency (ER) | payer BC ==
[~2020-10-11] VITALS: Ht 190.5 cm; Wt 111.4 kg
[2020-10-11] MEDS ORDERED: NS 1,000 ML IV ONE ×2 (10:45)
[2020-10-11] MEDS ORDERED: HumuLIN R (REGULAR) INSULIN (NovoLIN R) **100U/ML** PER UNIT IV ONE (11:30)
[2020-10-11] MEDS ORDERED: BASA100I SQ (11:41)
[2020-10-11] MEDS ORDERED: HUMA100I5 SC (13:19)
[2020-10-11 13:45] VITALS: BP 139/74
--- NOTE | 2020-10-11 16:36 | ECGEPIP ---
[facility] - ED Test Date: 2020-10-11 Pat Name: LORRI PEREZ Department: Room: - Gender: Male Hostess: : 1975 Requested By: Anne Joshua Order Number: [id number] Reading MD: Anne Joshua Measurements Intervals [place] Rate: 77 P: 34 [place]: 173 QRS: 5 QRSD: 81 T: 9 QT: 339 QTc: 384 Interpretive Statements SINUS RHYTHM DELAYED R PROGRESSION PRWP LOW VOLTAGE LIMB NO PRIOR Electronically Signed on 10-11-2020 16:36:26 EST by Anne Joshua
== END 2020-10-11 14:04 | disposition home or self-care (01) ==
LOC: M ED 10:23
DX: U07.1 COVID-19 (principal); E11.65 Type 2 diabetes mellitus with hyperglycemia; I10 Essential (primary) hypertension; Z79.899 Other long term (current) drug therapy; Z79.4 Long term (current) use of insulin

== ENCOUNTER → 2020-11-30 | Outpatient (REF) | payer BC ==
[~2020-11-30] MED LIST changes: +BASA100I SQ; +HUMA100I5 SC
[2020-11-30 12:24] LABS: BASO % 0.6 % (0.0-1.0); EOS # 0.1 10^3/uL (0.0-0.5); EOS % 1.3 % (0.0-3.0); HEMATOCRIT 44.4 % (42.0-52.0); HEMOGLOBIN 14.5 g/dl (13.5-17.5); LYMPH # 2.3 10^3/uL (1.5-5.0); LYMPH % 43.4 % (24.0-44.0); MEAN CORPUSCULAR HEMOGLOBIN 27.9 pg (27.0-33.0); MEAN CORPUSCULAR HGB CONC 32.7 g/dl (32.0-36.5); MEAN CORPUSCULAR VOLUME 85.5 fl (80.0-96.0); MONO # 0.5 10^3/uL (0.0-0.8); MONO % 9.1 % (2.0-8.0); NEUTROPHILS # 2.4 10^3/uL (1.5-8.5); NEUTROPHILS % 45.4 % (36.0-66.0); PLATELET COUNT, AUTOMATED 252 10^3/uL (150-450); RED BLOOD COUNT 5.19 10^6/uL (4.30-6.10); WHITE BLOOD COUNT 5.3 10^3/uL (4.0-10.0)
[2020-11-30 13:13] LABS: ALBUMIN 3.9 GM/DL (3.2-5.2); ALT/SGPT 43 U/L (12-78); BILIRUBIN,TOTAL 0.3 MG/DL (0.2-1.0); BLOOD UREA NITROGEN 17 MG/DL (7-18); CALCIUM LEVEL 9.3 MG/DL (8.5-10.1); CARBON DIOXIDE LEVEL 29 MEQ/L (21-32); CHLORIDE LEVEL 102 MEQ/L (98-107); CHOLESTEROL LEVEL 178 MG/DL (<200); CHOLESTEROL RISK RATIO 5.562 (<5); CREATININE FOR GFR 1.05 MG/DL (0.70-1.30); FREE T4 0.74 NG/DL (0.76-1.46); GLOMERULAR FILTRATION RATE > 60.0 (>60); GLUCOSE, FASTING 248 MG/DL (70-100); HDL CHOLESTEROL 32 MG/DL (>40); LDL CHOLESTEROL 123 MG/DL (<100); NON-HDL-C 146 MG/DL; POTASSIUM SERUM 4.8 MEQ/L (3.5-5.1); SODIUM LEVEL 137 MEQ/L (136-145); THYROID STIMULATING HORMONE 0.625 uIU/ML (0.358-3.740); TOTAL PROTEIN 7.1 GM/DL (6.4-8.2); TRIGLYCERIDES LEVEL 116 MG/DL (<150)
[2020-11-30 15:26] LABS: HEMOGLOBIN A1c 10.4 %
== END ==
LOC: M SFHCADAM 07:40
PROVIDERS: ATTEND Family Medicine
DX: R53.83 Other fatigue (principal); E11.9 Type 2 diabetes mellitus without complications

== ENCOUNTER → 2021-03-30 | Outpatient (REF) | payer BC ==
[~2021-03-30] MED LIST changes: +GLYB2.5T7 PO; -GLYB25TA PO; +OMEP40CA4 PO; -OMEP40CA97 PO
[2021-03-30 13:09] LABS: HEMOGLOBIN A1c 9.6 %
[2021-03-30 13:22] LABS: ALBUMIN 3.9 GM/DL (3.2-5.2); ALT/SGPT 50 U/L (12-78); BILIRUBIN,TOTAL 0.3 MG/DL (0.2-1.0); BLOOD UREA NITROGEN 14 MG/DL (7-18); CALCIUM LEVEL 8.7 MG/DL (8.5-10.1); CARBON DIOXIDE LEVEL 30 MEQ/L (21-32); CHLORIDE LEVEL 105 MEQ/L (98-107); CREATININE FOR GFR 0.98 MG/DL (0.70-1.30); FREE T4 0.83 NG/DL (0.76-1.46); GLOMERULAR FILTRATION RATE > 60.0 (>60); GLUCOSE, FASTING 181 MG/DL (70-100); POTASSIUM SERUM 4.4 MEQ/L (3.5-5.1); SODIUM LEVEL 139 MEQ/L (136-145)
== END ==
LOC: M SFHCADAM 07:32
PROVIDERS: ATTEND Family Medicine
DX: E11.9 Type 2 diabetes mellitus without complications (principal); R79.89 Other specified abnormal findings of blood chemistry

== ENCOUNTER → 2021-07-12 | Outpatient (REF) | payer BC ==
[~2021-07-12] MED LIST changes: -LISI2.5T2 PO; +LISI2.5T9 PO
[2021-07-12 17:55] LABS: ALBUMIN 4.1 GM/DL (3.2-5.2); ALT/SGPT 61 U/L (12-78); BILIRUBIN,TOTAL 0.4 MG/DL (0.2-1.0); BLOOD UREA NITROGEN 16 MG/DL (7-18); CALCIUM LEVEL 9.3 MG/DL (8.5-10.1); CARBON DIOXIDE LEVEL 27 MEQ/L (21-32); CHLORIDE LEVEL 106 MEQ/L (98-107); CREATININE FOR GFR 1.17 MG/DL (0.70-1.30); GLOMERULAR FILTRATION RATE > 60.0 (>60); GLUCOSE, FASTING 185 MG/DL (70-100); POTASSIUM SERUM 4.3 MEQ/L (3.5-5.1); SODIUM LEVEL 140 MEQ/L (136-145); TOTAL PROTEIN 7.4 GM/DL (6.4-8.2)
== END ==
LOC: M SFHCADAM 13:59
PROVIDERS: ATTEND Family Medicine
DX: E11.9 Type 2 diabetes mellitus without complications (principal)

== ENCOUNTER → 2021-08-20 | Outpatient (REF) | payer BC ==
[2021-08-20 13:42] LABS: BASO # 0.1 10^3/uL (0.0-0.2); BASO % 0.9 % (0.0-1.0); EOS # 0.1 10^3/uL (0.0-0.5); EOS % 1.3 % (0.0-3.0); HEMOGLOBIN 15.4 g/dl (13.5-17.5); LYMPH # 2.5 10^3/uL (1.5-5.0); LYMPH % 45.9 % (24.0-44.0); MEAN CORPUSCULAR HEMOGLOBIN 28.7 pg (27.0-33.0); MEAN CORPUSCULAR HGB CONC 33.5 g/dl (32.0-36.5); MEAN CORPUSCULAR VOLUME 85.8 fl (80.0-96.0); MONO # 0.4 10^3/uL (0.0-0.8); NEUTROPHILS # 2.4 10^3/uL (1.5-8.5); NEUTROPHILS % 43.7 % (36.0-66.0); PLATELET COUNT, AUTOMATED 291 10^3/uL (150-450); RED BLOOD COUNT 5.36 10^6/uL (4.30-6.10); WHITE BLOOD COUNT 5.5 10^3/uL (4.0-10.0)
== END ==
LOC: M SFHCADAM 07:21
PROVIDERS: ATTEND Family Medicine
DX: K62.5 Hemorrhage of anus and rectum (principal)

== ENCOUNTER → 2021-09-13 | Outpatient (REF) | payer BC ==
[2021-09-13 13:28] LABS: FOLLICLE STIMULATING HORMONE 11.2 mIU/mL (1.4-18.1)
[2021-09-14 15:10] LABS: TESTOSTERONE FREE (DIRECT) 13.3 pg/mL (6.8-21.5)
== END ==
LOC: M SFHCADAM 07:44
PROVIDERS: ATTEND Family Medicine
DX: R79.89 Other specified abnormal findings of blood chemistry (principal)

== ENCOUNTER → 2021-09-24 | Outpatient (CLI) | payer BC ==
[~2021-09-24] MED LIST changes: +B-12100T2 PO; +BYDU2INJ7 SC; -CEFD1CAP8 PO; +CEFD300C41 PO
== END ==
LOC: M LABSMTC 09:52
PROVIDERS: ATTEND Anesthesiology
DX: Z01.818 Encounter for other preprocedural examination (principal); Z11.52 Encounter for screening for COVID-19

== ENCOUNTER 2021-09-29 07:30 | Day surgery (SDC) | payer BC ==
[~2021-09-29] VITALS: Ht 190.5 cm; Wt 116.1 kg
[~2021-09-29 07:30] MED LIST changes: +CEFD1CAP8 PO; -CEFD300C41 PO; +NS 1,000 ML IV ONE
[2021-09-29] MEDS ORDERED: LIDOCAINE 2% 100MG/5ML SDV (FOR ANES.) As Ordered ONE (08:45)
[2021-09-29] MEDS ORDERED: propofoL 200 MG/20 ML VIAL As Ordered ONE ×2 (08:45→08:52)
--- NOTE | 2021-09-29 09:03 | ROOR ---
Patient Name: Scooter Meza Procedure Date: 09/29/2021 8:31 AM Date of : 1975 Age: 45 Room: [facility] Gender: Male Note Status: Finalized Procedure: Colonoscopy Indications: Iron deficiency anemia Providers: Sam Cruz DO Referring MD: Aliya Perez DO Requesting Provider: Medicines: Propofol per Anesthesia Complications: No immediate complications. Procedure: Pre-Anesthesia Assessment: - Prior to the procedure, a History and Physical was performed, and patient medications and allergies were reviewed. The patient is competent. The risks and benefits of the procedure and the sedation options and risks were discussed with the patient. All questions were answered and informed consent was obtained. Patient identification and proposed procedure were verified by the physician, the nurse, the gasoline dragline operator and the feed research technician in the endoscopy suite. Mental Status Examination: alert and oriented. Airway Examination: normal oropharyngeal airway and neck mobility. Respiratory Examination: clear to auscultation. CV Examination: normal. Prophylactic Antibiotics: The patient does not require prophylactic antibiotics. Prior Anticoagulants: The patient has taken no previous anticoagulant or antiplatelet agents. ASA Grade Assessment: II - A patient with mild systemic disease. After reviewing the risks and benefits, the patient was deemed in satisfactory condition to undergo the procedure. The anesthesia plan was to use monitored anesthesia care (MAC). Immediately prior to administration of medications, the patient was re-assessed for adequacy to receive sedatives. The heart rate, respiratory rate, oxygen saturations, blood pressure, adequacy of pulmonary ventilation, and response to care were monitored throughout the procedure. The physical status of the patient was re-assessed after the procedure. The Colonoscope was introduced through the anus and advanced to the cecum, identified by appendiceal orifice and ileocecal valve. The colonoscopy was performed without difficulty. The patient tolerated the procedure well. Findings: Two hyperplastic polyps were found in the sigmoid colon. The polyps were 3 to 4 mm in size. These polyps were removed with a jumbo cold forceps. Resection and retrieval were complete. Estimated blood loss was minimal. Impression: - Two 3 to 4 mm polyps in the sigmoid colon, removed with a jumbo cold forceps. Resected and retrieved. Recommendation: - Patient has a contact number available for emergencies. The signs and symptoms of potential delayed complications were discussed with the patient. Return to normal activities tomorrow. Written discharge instructions were provided to the patient. - Await pathology results. - Repeat colonoscopy in 3 - 5 years for surveillance based on pathology results. - Return to my office at appointment to be scheduled. Procedure Code(s): --- Professional --- 14726, Colonoscopy, flexible; with biopsy, single or multiple Diagnosis Code(s): --- Professional --- K63.5, Polyp of colon D50.9, Iron deficiency anemia, unspecified CPT copyright 2019 [employer] [place] [employer]. All rights reserved. The codes documented in this report are preliminary and upon strip mine supervisor review may be revised to meet current compliance requirements. Sam Cruz DO 09/29/2021 9:03:19 AM Electronically signed by Sam Cruz DO Number of Addenda: 0 Note Initiated On: 09/29/2021 8:31 AM Estimated Blood Loss: Estimated blood loss was minimal.
[2021-09-29 09:27] VITALS: BP 129/80
== END 2021-09-29 09:28 | disposition home or self-care (01) ==
LOC: M OPP 07:30
PROVIDERS: ATTEND Surgery
DX: K63.5 Polyp of colon (principal); D50.9 Iron deficiency anemia, unspecified; K62.5 Hemorrhage of anus and rectum; Z80.0 Family history of malignant neoplasm of digestive organs; Z79.84 Long term (current) use of oral hypoglycemic drugs; Z79.899 Other long term (current) drug therapy

== ENCOUNTER → 2022-02-16 | Outpatient (REF) | payer BC ==
[~2022-02-16] MED LIST changes: -CEFD1CAP8 PO; +CEFD300C41 PO; -NS 1,000 ML IV ONE
== END ==
LOC: M LAB REF 16:10
PROVIDERS: ATTEND Physician Assistant
DX: B34.8 Other viral infections of unspecified site (principal)

== ENCOUNTER → 2022-03-04 | Outpatient (REF) | payer BC ==
[2022-03-04 17:35] LABS: RSV AMPLIFICATION NEGATIVE (NEGATIVE)
== END ==
LOC: M LAB REF 15:50
PROVIDERS: ATTEND Physician Assistant
DX: R50.9 Fever, unspecified (principal)

== ENCOUNTER → 2022-03-09 | Outpatient (REF) | payer BC ==
[2022-03-09 17:54] LABS: HEMOGLOBIN A1c 10.5 %
[2022-03-09 18:14] LABS: ALBUMIN 3.8 GM/DL (3.2-5.2); ALT/SGPT 41 U/L (12-78); BILIRUBIN,TOTAL 0.4 MG/DL (0.2-1.0); BLOOD UREA NITROGEN 20 MG/DL (7-18); CALCIUM LEVEL 8.8 MG/DL (8.5-10.1); CARBON DIOXIDE LEVEL 26 MEQ/L (21-32); CHLORIDE LEVEL 109 MEQ/L (98-107); CREATININE FOR GFR 1.12 MG/DL (0.70-1.30); GLOMERULAR FILTRATION RATE > 60.0 (>60); GLUCOSE, FASTING 219 MG/DL (70-100); SODIUM LEVEL 139 MEQ/L (136-145); TOTAL PROTEIN 7.1 GM/DL (6.4-8.2)
== END ==
LOC: M SFHCADAM 15:25
PROVIDERS: ATTEND Family Medicine
DX: E11.9 Type 2 diabetes mellitus without complications (principal)

== ENCOUNTER → 2022-12-26 | Outpatient (REF) | payer BC ==
[~2022-12-26] MED LIST changes: -DOXY-350 PO; +DOXY-444 PO
[2022-12-26 17:04] LABS: PERCENT SATURATION 25.9 % (19.7-50.0)
[2022-12-26 17:07] LABS: FERRITIN 22.5 NG/ML (10.5-307.3)
== END ==
LOC: M LAB REF 16:15
PROVIDERS: ATTEND Internal Medicine
DX: D64.9 Anemia, unspecified (principal); G25.81 Restless legs syndrome

== ENCOUNTER → 2023-09-06 | Outpatient (CLI) | payer BC ==
[~2023-09-06] MED LIST changes: -CEFD300C41 PO; +CEFD300C42 PO
== END ==
LOC: M RAD 14:45
PROVIDERS: ATTEND Physician Assistant
DX: S57.02XA Crushing injury of left elbow, initial encounter (principal); W18.30XA Fall on same level, unspecified, initial encounter; Y92.009 Unspecified place in unspecified non-institutional (private) residence as the place of occurrence of the external cause

== ENCOUNTER → 2025-01-02 | Outpatient (REF) | payer BC ==
[~2025-01-02] MED LIST changes: +CEFD1CAP9 PO; -CEFD300C42 PO; +DOXY-440 PO; -DOXY-444 PO
== END ==
LOC: M LAB REF 12:00
PROVIDERS: ATTEND Internal Medicine
DX: E29.1 Testicular hypofunction (principal)

== ENCOUNTER → 2025-01-18 | Outpatient (CLI) | payer BC ==
[2025-01-18 12:37] LABS: HEMATOCRIT 47.4 % (42.0-52.0); HEMOGLOBIN 16.4 g/dl (13.5-17.5); MEAN CORPUSCULAR HEMOGLOBIN 29.6 pg (27.0-33.0); MEAN CORPUSCULAR HGB CONC 34.6 g/dl (32.0-36.5); MEAN CORPUSCULAR VOLUME 85.6 fl (80.0-96.0); PLATELET COUNT, AUTOMATED 224 10^3/uL (150-450); RED BLOOD COUNT 5.54 10^6/uL (4.30-6.10); WHITE BLOOD COUNT 5.8 10^3/uL (4.0-10.0)
[2025-01-18 13:03] LABS: C REACTIVE PROTEIN QUANTITATIV < 0.50 MG/DL (<1.0)
[2025-01-18 13:04] LABS: ALBUMIN 4.1 G/DL (3.2-5.2); ALKALINE PHOSPHATASE 86 U/L (40-129); ALT/SGPT 68 U/L (7.0-40); AST/SGOT 25 U/L (<34); BILIRUBIN,TOTAL 0.4 MG/DL (0.3-1.2); BLOOD UREA NITROGEN 17 MG/DL (9-23); CALCIUM LEVEL 8.6 MG/DL (8.5-10.1); CARBON DIOXIDE LEVEL 29 MMOL/L (20-31); CHLORIDE LEVEL 104 MMOL/L (98-107); CHOLESTEROL LEVEL 143 MG/DL (<200); CHOLESTEROL RISK RATIO 4.45 (<5); CREATININE FOR GFR 1.02 MG/DL (0.70-1.30); FREE T3 3.6 PG/ML (2.3-4.2); FREE T4 0.94 NG/DL (0.89-1.76); GLOMERULAR FILTRATION RATE > 90.0 (>60); GLUCOSE, FASTING 118 MG/DL (60-100); HDL CHOLESTEROL 32.1 MG/DL (>40); LDL CHOLESTEROL 92.1 MG/DL (<100); NON-HDL-C 110.9 MG/DL; POTASSIUM SERUM 4.2 MMOL/L (3.5-5.1); PROSTATIC SPECIFIC AG MONITOR 0.81 NG/ML (< 4.00); SODIUM LEVEL 141 MMOL/L (136-145); TRIGLYCERIDES LEVEL 94 MG/DL (<150)
[2025-01-18 13:05] LABS: THYROID PEROXIDASE ANTIBODY 30 U/ML (<60.0); THYROID STIMULATING HORMONE 0.605 uIU/ML (0.55-4.78); TOTAL 25(OH) VITAMIN D 28.6 NG/ML (20.0-100.0)
[2025-01-18 13:06] LABS: ESTRADIOL 43.5 PG/ML (<39.8); VITAMIN B12 LEVEL 1358 PG/ML (211-911)
== END ==
LOC: M LAB 11:22
PROVIDERS: ATTEND Nurse Practitioner Family
DX: R86.1 Abnormal level of hormones in specimens from male genital organs (principal)

== ENCOUNTER → 2025-07-22 | Outpatient (CLI) | payer BC ==
[~2025-07-22] MED LIST changes: -BYDU2INJ7 SC; +EXEN2AUT SC; -IBUP1TAB6 PO; +SFHIBU600 PO
[2025-07-22 11:01] LABS: PLATELET COUNT, AUTOMATED 251 10^3/uL (150-450)
[2025-07-22 12:14] LABS: PROSTATIC SPECIFIC AG MONITOR 1.17 NG/ML (< 4.00)
[2025-07-22 12:19] LABS: ESTRADIOL 55.2 PG/ML (<39.8)
[2025-07-23 12:12] LABS: PSA % FREE 33.0 % (calc) (>25); PSA FREE 0.4 ng/mL; PSA TOTAL 1.2 ng/mL (< OR = 4.0)
[2025-07-31 16:38] LABS: TESTOSTERONE FREE (DIRECT) 247.9 pg/mL (35.0-155.0); TESTOSTERONE TOTAL FOR T&D 1033.0 ng/dL (250-1100)
== END ==
LOC: M PLALAB 07:54
PROVIDERS: ATTEND Nurse Practitioner Family
DX: R86.1 Abnormal level of hormones in specimens from male genital organs (principal); Z79.890 Hormone replacement therapy

== ENCOUNTER → 2025-08-15 | Outpatient (CLI) | payer BC | LOC: M WUC 15:21 | DX: M54.50 Low back pain, unspecified (principal); S34.139A Unspecified injury to sacral spinal cord, initial encounter; Z87.81 Personal history of (healed) traumatic fracture; X58.XXXA Exposure to other specified factors, initial encounter; Y92.9 Unspecified place or not applicable; Y93.9 Activity, unspecified; Y99.9 Unspecified external cause status ==